=== PATIENT | female | born 1955 | race Caucasian/White ===

== ENCOUNTER → 2017-05-19 10:57 | Outpatient (CLI) | payer MEDICARE, SELFPAY ==
--- NOTE | 2017-05-19 11:01 | RAD_ITS ---
STUDY: X-RAY - LUMBAR SPINE REASON FOR EXAM: Female, 61 years old. CHRONIC LOW BACK PAIN; H/O LUMBAR DISCECTOMY, LAMINECTOMY TECHNIQUE: 2 view(s) of the lumbar spine were obtained. COMPARISON: None FINDINGS: Normal lumbar lordosis. There is scoliosis. Grade 1 anterolisthesis of L5 on S1. Stool throughout the colon. There is multilevel endplate spondylosis of the lumbar vertebrae. There is multi-level degenerative disc disease with multi-level disc space narrowing. There are atherosclerotic vascular calcifications. There are multiple metallic clips in the right upper quadrant. This is consistent for a cholecystectomy. The soft tissue structures are unremarkable. RAD/Lumbar Spine 2 or 3 Views IMPRESSION: Degenerative changes of the spine, as detailed above. Constipation Electronically Signed: Damian Bauer MD at 16:49 EDT , Service support ,
--- NOTE | 2017-05-19 11:07 | RAD_ITS ---
STUDY: X-RAY - CERVICAL SPINE REASON FOR EXAM: Female, 61 years old. CHRONIC NECK PAIN TECHNIQUE: 2 view(s) of the cervical spine were obtained. COMPARISON: None FINDINGS: Normal anterior atlantoaxial articulation. Multiple median sternotomy wires are noted consistent for cardiac surgery. There is straightening of the normal cervical lordosis. There is multi-level endplate spondylosis. There is multi-level degenerative disc disease with multilevel disc space narrowing. There is multi-level osseous foraminal stenosis. The soft tissue structures are unremarkable. RAD/Cerv Spine 2 or 3 Views IMPRESSION: There are degenerative changes as noted above. Electronically Signed: Damian Bauer MD at 16:56 EDT , Service support ,
== END ==
PROVIDERS: Family Provider Internal Medicine; PCP Internal Medicine; Visit Provider Anesthesiology Pain Medicine
DX: M54.2 Cervicalgia (principal); M54.5 Low back pain
CPT/HCPCS: 72040; 72100

== ENCOUNTER → 2017-05-26 17:00 | Outpatient (CLI) | payer MEDICARE, SELFPAY ==
--- NOTE | 2017-05-26 17:21 | MRI_ITS ---
STUDY: MRI LUMBAR SPINE WITHOUT CONTRAST REASON FOR EXAM: Female, 61 years old. BACK PAIN INTO R LEG FOR MANY YEARS TECHNIQUE: Standardized fat and water weighted pulse sequences were obtained in the sagittal and axial planes. COMPARISON: None FINDINGS: T12-L1: Endplate spondylosis. Decreased disc height and moderate circumferential disc bulge. Small midline disc herniation. Degenerative changes of the bilateral facet joints. Moderate generalized abdominal pain narrowing of the central canal and bilateral intervertebral neural foramina. Normal lumbar lordosis. There is no substantial scoliosis. Normal conus medullaris that terminates at the L1 level L1-2: Endplate spondylosis. Decreased disc height and moderate circumferential disc bulge. Degenerative changes of the bilateral facet joints. Severe narrowing of the central canal and moderate narrowing of the bilateral intervertebral neural foramina. L2-3: Endplate spondylosis. Decreased disc height and small circumferential disc bulge. Degenerative changes of the bilateral facet joints. Mild narrowing of the central canal and moderate narrowing of the bilateral intervertebral neural foramina. L3-4: Endplate spondylosis. Bilateral laminectomy. Degenerative changes of the bilateral facet joints. Severe right and moderate left intervertebral neural foramina narrowing. L4-5: Endplate spondylosis. Decreased disc height and moderate circumferential disc bulge. Degenerative changes of the bilateral facet joints. Moderate narrowing of the central canal. Moderate right and severe left bilateral intervertebral neural foramina narrowing. L5-S1: Endplate spondylosis. Decreased disc height and small circumferential disc bulge. Degenerative changes of the bilateral facet joints. 7 mm spondylolisthesis. Moderate narrowing of the central canal and bilateral intervertebral neural foramina. Normal visualized sacral ala. Normal visualized paraspinous soft tissue structures. MRI/Spine Lumbar (Routine) IMPRESSION: Multilevel degenerative changes, as described above. Electronically Signed: Dana Archer MD at 7:12 EDT Tel , Service support ,
--- NOTE | 2017-05-26 17:22 | MRI_ITS ---
STUDY: MRI CERVICAL SPINE WITHOUT CONTRAST REASON FOR EXAM: Female, 61 years old. Neck pain radiating to the upper extremities TECHNIQUE: Standardized fat and water weighted pulse sequences were obtained in the sagittal and axial planes. COMPARISON: None FINDINGS: Normal foramen magnum and brainstem-cervical cord junction. Normal craniovertebral junction. Normal anterior atlantoaxial articulation. Normal odontoid process. Decreased cervical lordosis. Normal vertebral bodies and posterior osseous elements. C2-3: Normal endplates. Normal disc height, signal and small to moderate size broad-based central/left paracentral disc protrusion. There is mild narrowing of the central canal and compression of the ventral surface of the cord on the left. The bilateral neuroforamina are normal. C3-4: Normal endplates. Normal disc height, signal and minor bulging disc with small right posterolateral/foraminal disc/osteophyte protrusion. Normal central canal . Mild left neuroforaminal stenosis and more severe narrowing on the right secondary to disc and bony hypertrophy C5-6:: Narrowed disc space and endplate spurring.. Minimal bulging disc with right posterolateral/foraminal disc/osteophyte protrusion. Mild narrowing the central canal and impingement upon the cord to the right of the midline. Severe right neuroforaminal stenosis secondary to disc and bony hypertrophy. Mild left neural foraminal encroachment secondary to bony hypertrophy C6-7:: Narrowed disc space and endplate spurring. Mild bulging disc osteophyte complex with small right posterolateral disc protrusion.. Mild narrowing of the central canal. Moderate to severe bilateral neuroforaminal stenosis secondary to disc disease and bony hypertrophy C7-T1:: Normal endplates. Normal disc height, signal and morphology. Normal central canal and intervertebral neural foramina. Normal cervical cord. Normal visualized soft tissue structures. MRI/Spine Cervical (Routine) IMPRESSION: Spondylosis and multilevel spinal stenosis secondary to disc disease and bony hypertrophy. Findings as above. Electronically Signed: Jason Brumfield MD at 20:07 EDT , Service support ,
== END ==
PROVIDERS: Family Provider Internal Medicine; PCP Internal Medicine; Visit Provider Anesthesiology Pain Medicine
DX: M54.2 Cervicalgia (principal); M54.9 Dorsalgia, unspecified; M79.606 Pain in leg, unspecified; M79.603 Pain in arm, unspecified
CPT/HCPCS: 72141; 72148

== ENCOUNTER → 2017-06-16 17:18 | Outpatient (CLI) | payer MEDICARE, SELFPAY ==
--- NOTE | 2017-06-16 17:24 | RAD_ITS ---
STUDY: X-RAY - THORACIC SPINE REASON FOR EXAM: Female, 61 years old. Fall, pain in back TECHNIQUE: 2 view(s) of the thoracic spine were obtained. COMPARISON: None. FINDINGS: Normal kyphosis of the thoracic spine. There is a mild scoliosis. Degenerative changes of the thoracic vertebrae with spurring at the endplates. Slightly narrowed lower thoracic disc space heights. The soft tissue structures are unremarkable. Sternotomy wires and clips over the mediastinum. Surgical clips in the right upper quadrant. RAD/Thoracic Spine 2 Views IMPRESSION: Degenerative changes and slight scoliosis of the thoracic spine. Electronically Signed: Edin Kaufman DO at 22:01 EDT Tel [phone], Service support ,
== END ==
LOC: RAD 17:19
PROVIDERS: Family Provider Internal Medicine; PCP Internal Medicine; Visit Provider Anesthesiology Pain Medicine
DX: M54.6 Pain in thoracic spine (principal); W19.XXXA Unspecified fall, initial encounter
CPT/HCPCS: 72070

== ENCOUNTER → 2017-09-28 17:54 | Outpatient (CLI) | payer MEDICARE, SELFPAY ==
[2017-09-28 18:54] LABS: Amphetamine Urine VISTA NEGATIVE (<1000 ng/mL); Barbiturate Urine VISTA NEGATIVE (< 200 ng/mL); Benzodiazepine Urine VISTA NEGATIVE (< 200 ng/mL); Cocaine Urine VISTA NEGATIVE (< 300 ng/mL); Ecstacy Urine VISTA POSITIVE (< 500 ng/mL); Methadone Urine VISTA NEGATIVE (< 300 ng/mL); PCP Urine VISTA NEGATIVE (< 25 ng/mL); THC Urine VISTA NEGATIVE (< 50 ng/mL); Vista UDS pH Range 6
== END ==
PROVIDERS: Family Provider Internal Medicine; PCP Internal Medicine; Visit Provider Anesthesiology Pain Medicine
DX: F11.20 Opioid dependence, uncomplicated (principal)
CPT/HCPCS: 80307

== ENCOUNTER 2018-07-20 10:00 | Outpatient (RCR) | payer MEDICARE, OTHER, SELFPAY ==
--- NOTE | 2018-06-09 16:47 | HP.OTEVAL_ITS ---
Patient's Visit Information SUYAPA BURT is a 62 year old F, referred to Occupational Therapy by Chidi Currie MD, with a diagnosis of other disturbances of skin sensation. Date of Evaluation: 06/09/18 Occupational Therapist: Radha Krishna - Subjective Subjective: Pt seen for initial occupational therapy for other disturbances of skin sensation. Pt states last fall started having decreased dexterity and numbness of R MF, IF and thumb. Pt states x-ray in 02/22 of R hand nothing showed up. Pt right hand dominent. Numbness/tingling tips of fingers to R elbow. Back sx 2006 at [facility], open heart sx 96. Lives w/ spouse, 1 story apartment, indep w/ BADLs/IADLs, still drives. Hobbies crochett, adult coloring books. Pt states has a lot of difficulty grasping objects for self care tasks, getting her earrings in and cutting with a knife for self feeding tasks. - Pain R hand 4 Pain Intensity Range: 4, 5 - Objective Objective/Observation: pain with movement R hand, light tremors R hand, decreased coordination R hand - ROM Wrist: R 45/91 L L 47/89 MP: R MF 90 IF 91, L MF 89 IF 94 - Strength Demurrage Worker: R 33#, L 55# Lateral Pinch: R 8#, L 8# Tripod Pinch: R 3#, L 9# - Edema Other: Slight edema noted R hand - Sensation Sensation Comments: Monofilament: R thumb, PF 3.61, MF, RF, 5th digit 3.84 - Nine Hole Peg Right: 50.7 seconds Left: 32.7 seconds - Quick DASH-Disab of Arm,Shoulder& Hand Quick DASH Score: 38.6350 - Goals Goal:: Pt will progress w/ R subgrade tester strength by 20# to assist w/ grooming tasks independently by d/c from OT services. Pt will progress w/ tripod pinch by 5# to assist with functional living tasks. Goal:: Pt will demo no pain greater than 1/10 with R hand with movement by d/c from OT services. Goal:: Pt will progress w/ score of R hand nine hole peg test by 20 sec to demo increased coordination and dexterty skills by d/c from OT services. Goal:: Pt will be educated on joint protection/energy conservation techniques wtih good understanding and demo 100%x Goal:: Pt will be able to complete all self feeding tasks using R hand with good coordination skills and no spillage of food or difficulty cutting by d/c from OT services. Goal:: Pt will be educated on R UE HEP with good understanding and demo 100%x - Rehabilitation General Assessment: Pt demo decreased strength of R hand, increased pain of R hand, decreased coordination and manipulation/dexterity skills of R hand for functional living tasks all indicating a need for skilled OT interventions to increase R hand strength, increase R hand coordination skills, decrease pain of R hand, educate on HEP to increase pts indep w/ functional living skills and quality of life 1-2x/wk - 4-6wks Rehabilitation Potential: Good - Anticipated Interventions Anticipated Interventions: Strengthening, Massage, Modalities, Orthoses, Joint P rotection/Energy Conservation, Fine Motor Coord/Hussein, ADL Training, Education re assistive Equipment, Education re Diagnosis, Education re Self Massage Techniques, Home Program - Visit Plan Frequency: 1-2x /Week Duration: 4-6 Weeks General Plan: increase R hand strength, decrease pain R hand, increase coordi antion skills R hand for BADLs/IADLs, educate on jont protection, HEP. TEXT: Thank you for the opportunity to evaluate your patient. For Medicare and Medicare HMO plans, please review the plan of care and approve it. It will need to be FAXED BACK to us at [phone] for Medicare purposes. Please let me know if there are questions or concerns regarding this plan of care. Physician Signature: Date:
--- NOTE | 2018-07-20 13:14 | HP.OTDCSUM ---
HP - OT D/C Summary It has been my pleasure to treat SUYAPA BURT under orders from Chidi Currie MD, for the diagnosis of other disturbances of skin sensation for a total of 10 visit(s). Please see the following information for a summary of their discharge status. - Overall Improvement % Improvement: 45 - Objective Objective/Function: US= 10 min R dorsal side hand MF and IF to increase circulation and promote healing, decrease pain, 1.2, 3.3 MHZ, 50%. - Goals Patient Goals: Regain Strength, Decrease Pain, Decrease Swelling/Stiffness, Improve Fine Motor Skills, Use Hand/Wrist/Arm Normally Again, Decrease Tingling/Numbness, Be More Independent in ADLS, Decrease Sensitivity, Resume Former Household Responsibilities (Cooking,Cleaning,Yard, etc.), Resume Hobbies Goal:: Pt will progress w/ R sports medicine trainer strength by 20# to assist w/ grooming tasks independently by d/c from OT services. Pt will progress w/ tripod pinch by 5# to assist with functional living tasks. Goal:: Pt will demo no pain greater than 1/10 with R hand with movement by d/c from OT services. Goal:: Pt will progress w/ score of R hand nine hole peg test by 20 sec to demo increased coordination and dexterty skills by d/c from OT services. Goal:: Pt will be educated on joint protection/energy conservation techniques wtih good understanding and demo 100%x Goal:: Pt will be able to complete all self feeding tasks using R hand with good coordination skills and no spillage of food or difficulty cutting by d/c from OT services. Goal:: Pt will be educated on R UE HEP with good understanding and demo 100%x - Plan Plan: d/c OT services this date. - D/C Information Discharge Comments: Pt has demonstrated decreased pain R UE during occupational therapy with use of modalities. Pt has been educated on R UE HEP, nerve glides, tendon glides and theraputty HEP with good understanding and demo. Pt has progressed with AROM R wrist from evaluation to 60/. Pt has progressed with R hand sports medicine trainer strength from 33# to 45#. Tripod pinch strength has remained 3#. Pt has been educated on fine motor coordination activities to complete at home and is able to grasp objects better with her R hand however continues to occassionally drop things with her R hand. 9 hole peg test was 50.7 seconds at evaluation and 1 min 9 seconds at d/c. Monofilament at d/c R hand was 3.61 MF, RF, PF and 3.84 thumb, IF. Pt states no spillage of food or difficulty with cutting food at this time. Pt does continue to demo pain with right hand however not as severe as when initially started OT and continues to demo decreased coordination and grasping skills of R hand. Rec pt to return back to dr and d/c OT services at this time. If there are questions or concerns regarding this patient's occupational therapy, please fell free to call me at [phone]. Thank you for the referral of this patient. Sincerely, Radha Krishna
== END 2018-07-20 19:00 | disposition home or self-care (01) ==
LOC: OT 10:00
PROVIDERS: Family Provider Internal Medicine; PCP Internal Medicine; Referring Provider Specialist; Visit Provider Specialist
DX: R20.8 Other disturbances of skin sensation (principal)
CPT/HCPCS: 97035; 97140; 97166; 97530

== ENCOUNTER 2019-07-02 04:17 | Emergency (ER) | payer MEDICARE, OTHER, SELFPAY ==
[2019-07-02 04:19] VITALS: BP 163/102; PULSE 75; RESP 16; TEMP 36.4; O2SAT 98; BMI 42.4
--- NOTE | 2019-07-02 04:32 | CT_ITS ---
STUDY: CT BRAIN WITHOUT CONTRAST REASON FOR EXAM: Female, 63 years old. FELL WHILE GOING TO BATHROOM AND HIT HEAD, PT TAKES DAILY ASPIRIN RADIATION DOSAGE (If Supplied By Facility): CTDIvol = ( 44.99 ) mGy, DLP = ( 812.98 ) mGycm TECHNIQUE: Transaxial CT imaging of the brain was performed without administration of intravenous contrast material. Individualized dose optimization techniques were used for this CT. COMPARISON: No relevant priors. FINDINGS: Normal soft tissue structures. Normal calvarium. As seen on series 2, axial image 25, there is a 6 mm extra-axial calcification, contiguous with the inner table of the left frontal calvarium, and probably representing a densely calcified meningioma is no mass effect on the underlying brain. There is mild cerebral atrophy with widening of the extra-axial spaces and ventricular dilatation. There are areas of decreased attenuation within the white matter tracts of the supratentorial brain, consistent with microvascular disease changes. Normal basal ganglia and thalami. Normal brainstem. Normal cerebellum. There is atherosclerotic calcification of the cavernous carotid arteries. There is no intracranial hemorrhage. There are no findings of an acute ischemic infarction. Normal visualized paranasal sinuses. CT/Brain/Head without Contrast IMPRESSION: Chronic involutional changes of the brain. No demonstrated acute intracranial process. 6 mm densely calcified meningioma underlying the left parietal calvarium, with no mass effect on the brain. Suggest follow-up exam in one year to assess stability. Electronically Signed: Oz Dos Santos MD at 5:00 EDT , Service support ,
--- NOTE | 2019-07-02 04:33 | ED.VIS.GEN ---
History of Present Illness Chief Complaint: Fall Informant: Patient Narrative: Stated she went to the bathroom to use the restroom. She fell asleep on the toilet and fell forward striking her head on the wall. She came in for further evaluation. Happened just prior to arrival. Current severity is mild to moderate. She has some soreness to the right side of her neck. No shortness to the backside of her neck. Tetanus is up-to-date. Worsened by nothing. Relieved by nothing. Describes some pain where she struck her face - Past Medical History (1) Diarrhea Status: Acute (2) Elevated LFTs Status: Acute (3) Hypothyroid Status: Acute (4) CAD (coronary artery disease) Status: Chronic (5) COPD (chronic obstructive pulmonary disease) Status: Chronic (6) Hiatal hernia Status: Chronic (7) Hx of CABG Status: Chronic (8) Ulcer Status: Chronic Past Medical History - Allergies and Home Meds Allergies/Adverse Reactions: Allergies Sulfa (Sulfonamide Antibiotics) Allergy (Verified 07/02/19 04:25) Rash pregabalin [From Lyrica] Adverse Reaction (Verified 07/02/19 04:25) Swelling Primary Care Physician: Meg Quan MD [Primary Care Provider] - Prior records reviewed: Yes Past Medical History: - - See problem list Surgical History: hysterectomy, - - d&c,egd and colonoscopy in the past Lives: With Family Smoking Status: Never smoker Alcohol: None Drugs: None - Family History Maternal Family History: Reports: Heart Disease, - - colon cancer Paternal Family History: Reports: Heart Disease, - - colon cancer Review of Systems General: Denies: Chills, Fever, Sweats Eyes: Denies: Visual changes - bilaterally, Diplopia ENT: Denies: Rhinorrhea, Sore throat Cardiovascular: Denies: Chest pain, Palpitations Respiratory: Denies: Dyspnea, Cough, Dyspnea on exertion Gastrointestinal: Denies: Abdominal pain, Nausea, Vomiting, Diarrhea, Melena, Hematochezia Genitourinary: Denies: Dysuria, Hematuria, Frequency Musculoskeletal: Reports: Neck pain - See HPI. Denies: Back pain, Extremity Pain Skin: Reports: Wounds. Denies: Rash Neurological: Reports: Headache. Denies: Weakness, Numbness Physical Exam Vital Signs/Narrative: Vital Signs Temp Pulse Resp BP Pulse Ox 07/02/19 04:19 97.6 F L 75 16 163/102 H 98 General: Well nourished, Well developed, No Acute Distress Head: Normocephalic, Trauma - Small contusion to the right forehead. 2 small lacerations just lateral to the right eye on the temporal portion of the forehead. Negative for: Atraumatic Eyes: Perrl, EOMI ENT: Moist mucous membranes, No rhinorrhea Neck: Supple, - - Noted to the right paracervical muscles where they insert on the posterior portion of the cranium. No midline posterior neck pain. Normal range of motion. Negative for: Nontender Cardiovascular: Regular rate, Regular rhythm, No murmurs Respiratory: No distress, CTA bilaterally, Chest nontender Abdomen: Soft, Nontender, Nondistended, Normal bowel sounds Back: Nontender, Normal Inspection Extremities: Nontender, No edema Skin: - - See above. Negative for: Normal color, No rash Neurological: Alert, Oriented x3, Cranial nerves II-XII grossly intact, Normal Strength, Normal Sensation Psychological: Normal affect, Normal Mood Diagnostic/Tx/Re-eval - Medical Decision Making CT head obtained. Tetanus is up-to-date. CT head shows nothing acute. Calcified suspected meningioma 6 mm noted. Patient made aware of this and will follow-up for an outpatient CAT scan as an outpatient for monitoring. I suspect this is a benign meningioma. She received sutures in her lacerations. One received 3 sutures and the other received 4 sutures. It came together nicely with good hemostasis. There is no foreign body seen in a bloodless field. The wounds were washed with 500 cc of saline. There were cleansed with chlorhexidine. Anesthetized with lidocaine with epinephrine a total of 3 cc. Patient will follow-up as an outpatient. She did not want thing for pain. I feel she has slight whiplash in her neck. I do not feel she needs an x-ray of her neck. I do not feel she needs a CAT scan of her neck. She is sore on the lateral aspects ED Disposition - Plan for ED Patient: Disposition: LEFT WITHOUT BEING SEEN Diagnosis: Forehead laceration, Head contusion, Neck strain, Meningioma Instructions: ED Laceration All Closures, ED Sprain Strain Neck Referrals: Meg Quan MD [Primary Care Provider] - Additional Instructions: Sutures removed in 7 to 10 days Please follow-up with family doctor about the CAT scan results of possible meningioma
[2019-07-02] MEDS: BACITRACIN 15 GM Tube 1 APPLIC TOPICAL (05:05)
[2019-07-02 05:44] VITALS: BP 155/98; PULSE 76; RESP 16; O2SAT 97
== END 2019-07-02 05:44 | disposition left against medical advice (07) ==
LOC: ED 05:24
PROVIDERS: Emergency Provider Emergency Medicine; PCP Internal Medicine
DX: S01.81XA Laceration without foreign body of other part of head, initial encounter (principal); S16.1XXA Strain of muscle, fascia and tendon at neck level, initial encounter; D32.9 Benign neoplasm of meninges, unspecified; W18.12XA Fall from or off toilet with subsequent striking against object, initial encounter; Z53.21 Procedure and treatment not carried out due to patient leaving prior to being seen by health care provider; Z95.1 Presence of aortocoronary bypass graft
CPT/HCPCS: 12011; 70450; 99283

== ENCOUNTER 2020-05-14 04:32 | Outpatient (RCR) | payer MEDICARE, OTHER, SELFPAY ==
[2020-05-14] MEDS: COVID-19 VACC, MRNA(PFIZER)/PF 30 MCG/0.3 ML SYRINGE IM (10:28)
[2020-06-04] MEDS: COVID-19 VACC, MRNA(PFIZER)/PF 30 MCG/0.3 ML SYRINGE IM (10:19)
== END 2020-08-13 23:59 ==
LOC: IMMUN 04:32
PROVIDERS: PCP Internal Medicine; Visit Provider Family Medicine
DX: Z23 Encounter for immunization (principal)
CPT/HCPCS: 0001A; 0002A; 91300

== ENCOUNTER 2022-07-27 18:37 | Emergency (ER) | payer MEDICARE, SELFPAY ==
[2022-07-27 18:39] VITALS: BP 161/75; PULSE 75; RESP 18; TEMP 36.8; O2SAT 95; BMI 37.4
--- NOTE | 2022-07-27 19:21 | CT_ITS ---
INDICATION: hallucinations, hx meningioma EXAMINATION: CT BRAIN - CT Head or Brain W/O Contrast Injection TECHNIQUE: Multiple axial images were obtained of the head without intravenous contrast. A radiation dose optimization technique was used for this scan. IV Contrast dosage and agent: None. COMPARISON: July 02, 2019 CT head. FINDINGS: BRAIN PARENCHYMA: No intra- or extra-axial hemorrhage. No suspicious intracranial mass or mass effect. Ford/white matter differentiation is maintained and there is no blurring of the basal ganglia. There is no hyperdense vessel. There is decreased density in the periventricular white matter bilaterally symmetric most commonly representing chronic small vessel ischemic changes. 10 x 27 mm fluid density anterolateral periphery of the left posterior fossa likely representing an arachnoid cyst. Appearance is unchanged. The prior exam. Unchanged extra-axial calcification left parietal region likely meningioma. CSF SPACES: Prominent bilaterally suggesting decreased parenchymal volume. No hydrocephalus. Basal cisterns are patent. CALVARIUM, SKULL BASE, PARANASAL SINUSES AND MASTOID AIR CELLS: Intact calvarium and skull base. No fracture or osseous lesion. Paranasal sinuses are clear. Mastoid air cells and middle ears are clear. Degenerative changes right greater than left bilateral temporomandibular joints. ORBITS: Both globes, extraocular muscles, optic nerves and retrobulbar fat appear unremarkable. ASPECTS Score for Acute Strokes: 10 CT/Brain/Head without Contrast IMPRESSION: No acute intracranial pathology. Chronic small vessel ischemic changes. Likely subcentimeter, calcified meningioma left parietal lobe, unchanged compared to prior comparison exam. 10 x 27 mm fluid density left anterolateral posterior fossa likely representing a arachnoid cyst, unchanged in appearance compared to prior exam. Electronically Signed: Daniele Chacon DO at 20:26 EDT ,
--- NOTE | 2022-07-27 19:23 | EX.ED.DYSGE1 ---
HPI History of Present Illness Chief Complaint: Bite Informant: patient and spouse/S.O. Narrative Narrative: For about the past week, patient states she has had spider bites all over her body mostly on her forearms and her face, they are in her head, her hair, behind her eyes, she states she is seeing spiders all over, they are on her, they are biting her and given her white bumps, and she cannot get them out of her hair even with shampooing. She states that the skin areas are bothersome but not necessarily itchy, painful, nor anything else. The significant other is here. They live in an apartment complex. He has seen none of the spiders, in the apartment nor on her. She does not have any psychiatric illness and she states I am not crazy. [facility] Medical History (Updated 07/27/22 @ 21:[address] Ronni Felix MD) CAD (coronary artery disease) COPD (chronic obstructive pulmonary disease) Hiatal hernia Hypothyroid Ulcer Home Medications amitriptyline 25 mg tablet 50 mg PO QHS 07/24/15 [History Last Taken 11/18/15] bupropion HCl 100 mg tablet 100 mg PO DAILY 07/24/15 [History Last Taken 11/19/15] dicyclomine 10 mg capsule 10 mg PO ACHS PRN Irritable Bowel Syndrome 07/24/15 [History Last Taken 11/18/15] isosorbide mononitrate 30 mg tablet,extended release 24 hr 30 mg PO DAILY 07/24/15 [History Last Taken 11/19/15] levothyroxine 137 mcg tablet 137 mcg PO DAILY 07/24/15 [History Last Taken 11/19/15] lisinopril 5 mg tablet 10 mg PO DAILY 07/24/15 [History Last Taken 11/19/15] nitroglycerin 0.4 mg sublingual tablet 0.4 mg sublingual Q5M PRN Chest Pain 07/24/15 [History Last Taken Unknown] tramadol 50 mg tablet 50 mg PO BID pain 07/24/15 [History Last Taken 11/19/15] aspirin 81 mg tablet,delayed release 81 mg PO DAILY@0800 07/28/15 [History Last Taken 11/19/15] furosemide 20 mg tablet 20 mg PO DAILY PRN PRN Swelling 07/28/15 [History Last Taken Unknown] gabapentin 600 mg tablet 1,200 mg PO TID 07/28/15 [History Last Taken 11/19/15] multivitamin with folic acid 400 mcg tablet (Thera) 1 tab PO DAILY 07/28/15 [History Last Taken 11/19/15] omega-3 fatty acids 300 mg capsule (Fish Oil) 2,400 mg PO DAILY 07/28/15 [History Last Taken 11/19/15] metoprolol tartrate 100 mg tablet 37.5 mg PO BID 07/29/15 [History Last Taken 11/19/15] docusate sodium 100 mg capsule (DOK) 100 mg PO DAILY 03/23/16 [History Last Taken Unknown] fluticasone propionate 50 mcg/actuation nasal spray,suspension (Flonase Allergy Relief) 2 spray intranasal DAILY 07/27/22 [History Last Taken Unknown] rosuvastatin 40 mg tablet 40 mg PO DAILY 07/27/22 [History Last Taken Unknown] tizanidine 2 mg tablet 2 mg PO BID PRN muscle spasms 07/27/22 [History Last Taken Unknown] topiramate 50 mg tablet 50 mg PO QHS 07/27/22 [History Last Taken Unknown] vitamins A,C,Z-qkvb-tbarkb 2,148 mcg-113 mg-45 mg-17.4 mg tablet (PreserVision AREDS) 2 tab PO BID 07/27/22 [History Last Taken Unknown] Allergy/AdvReac Type Severity Reaction Status Date / Time Sulfa (Sulfonamide Allergy Rash Verified 07/02/19 04:25 Antibiotics) pregabalin [From Lyrica] AdvReac Swelling Verified 07/02/19 04:25 Surgical History (Updated 07/27/22 @ 19:[address] Ronni Felix MD) Hx of CABG Social History Smoking Status: Never smoker ROS ROS ED Constitutional Constitutional ED: Denies chills or fever(s) Eyes Eyes: Denies change in vision or diplopia ENT ENT ED: Denies rhinorrhea or sore throat Cardiovascular Cardiovascular: Denies chest pain or palpitations Respiratory/Chest Respiratory/Chest: Denies cough or dyspnea Gastrointestinal Gastrointestinal: Denies abdominal pain, diarrhea, nausea or vomiting Genitourinary Genitourinary ED: Reports urinary frequency; Denies dysuria or hematuria Musculoskeletal Musculoskeletal: Denies back pain or neck pain Integumentary Denies abscess or rash Neurologic Neurologic: Denies headache(s), paresthesias or weakness Psychiatric Psychiatric: Denies anxiety or suicidal thoughts EXAM Physical Exam Const Vital Signs: 07/27/22 18:39 07/27/22 19:22 07/27/22 21:02 Temperature 98.3 F Temperature Source Temporal Pulse Rate 75 65 Respiratory Rate 18 18 Respiratory Effort Normal Respiratory Pattern Normal Blood Pressure 161/75 H 147/71 H Blood Pressure Mean 103 96 Pulse Ox 95 95 Oxygen Delivery Method Room Air Room Air Positive well nourished and well developed General Appearance ED: well developed and NAD HEENT Reports moist mucous membranes normocephalic and atraumatic Eyes PERRL and EOMs intact bilaterally Neck full ROM and supple Resp normal respiratory effort and clear to auscultation bilaterally Cardio regular rate, regular rhythm and no murmurs GI non-tender and non-distended Auscultation: normoactive bowel sounds Palpation: soft Back/Spine no CVA tenderness General Back: other FROM Extremity normal to inspection General Extremety ED: Negative for edema, pulses abnormal or tenderness General Extremity: Negative for edema or pulses abnormal Neuro oriented x3, CN's II-XII intact bilaterally and no sensory deficits noted Sensorium / Orientation: awake and alert Motor Exam: strength 5/5 throughout Skin no rashes or lesions noted and no wounds Skin Narrative: no bumps, lesions, rashes, including scalp/hair which is normal; no spiders, bugs, mites, nits. MDM MDM MDM Narrative Medical decision making narrative: As I advised the patient I do not think she is psychotic, but my concern given the normal exam, she points to areas on her forearm where there are white bumps and spiders but I see nothing, and I looked through her hair and I see nothing, is that she is hallucinating and there may be an organic reason. When I discussed the possibility of other symptoms she has urinary frequency and states it is due to the lisinopril, whereas I looked at her medication list and corrected her is probably due to the furosemide not the lisinopril, she also states she has a history of a meningioma. It was diagnosed by CT 3 years ago incidentally after trauma, she followed up and had an MRI, she never followed up again. I obtained all of this testing basically everything is nonacute. I reviewed the CT images and the report and I agree with it. Urinalysis shows no infection, chest x-ray 2 view showed no sign of acute pneumonia. I reviewed the radiologist interpretation of this, who also agrees it does not appear to be consistent with consolidation, she does not have any acute respiratory symptoms. I discussed with Dr. Hodges, I am concerned about this patient and wondered have close a patient follow-up. She does not need to be pink slipped and does not do anything dangerous right now, my concern is that it could be psychiatric, I see no evidence of an acute organic cause at this time. She does have a meningioma but it is unchanged on the CT. She had an MRI about 3 years ago she said never followed up again after that. Lab Data Attestation: I reviewed the patient's lab results. Labs: Laboratory Results - last 24 hr 07/27/22 07/27/22 07/27/22 19:30 19:30 19:55 WBC 9.8 RBC 4.35 Hgb 13.4 Hct 38.6 MCV 88.7 MCH 30.8 MCHC 34.7 RDW Std Deviation 39.3 RDW Coeff of Abdullahi 12.1 Plt Count 227 MPV 10.4 Immature Gran % (Auto) 0.200 Neut % (Auto) 48.3 Lymph % (Auto) 37.9 [place] % (Auto) 7.9 Eos % (Auto) 5.3 H Baso % (Auto) 0.4 Absolute Neuts (auto) 4.7 Absolute Lymphs (auto) 3.71 Nucleated RBC % 0 Sodium 142 Potassium 3.7 Chloride 109 H Carbon Dioxide 24.0 Anion Gap 9 BUN 13 Creatinine 1.07 H Estim Creat Clear Calc 37.44 Est GFR (MDRD) Af Amer 65 Est GFR (MDRD) Non-Af 54 L BUN/Creatinine Ratio 12.1 Glucose 96 Calcium 9.2 Urine Color Yellow Urine Clarity Sl. Cloudy Urine pH 6.0 Ur Specific [place] 1.015 Urine Protein 30 H Urine Glucose (UA) Normal Urine Ketones Negative Urine Occult Blood 50 H Urine Nitrite Negative Urine Bilirubin Negative Urine Urobilinogen Normal Ur Leukocyte Esterase Negative Urine RBC 0 SEEN Urine WBC 0-5 SEEN Ur Squamous Epith Cells 0 SEEN Urine Bacteria 0 SEEN Urine Mucus 0 SEEN Radiography Diagnostic Testing: Clinical Impression(s) from Imaging Studies Brain CT 07/27/22 19:21 IMPRESSION: No acute intracranial pathology. Chronic small vessel ischemic changes. Likely subcentimeter, calcified meningioma left parietal lobe, unchanged compared to prior comparison exam. 10 x 27 mm fluid density left anterolateral posterior fossa likely representing a arachnoid cyst, unchanged in appearance compared to prior exam. Electronically Signed: Daniele Chacon DO at 20:26 EDT , Chest X-Ray 07/27/22 20:05 IMPRESSION: 1. Significant asymmetric elevation right hemidiaphragm with associated linear opacities and volume loss likely representing atelectasis. Infiltrate not completely excluded. 2. Postsurgical changes from thoracotomy. Electronically Signed: Daniele Chacon DO at 20:32 EDT , Discharge Plan Triage Chief Complaint: Bite ED Provider: Ronni Felix Dx/Rx/DC Orders Clinical Impression: Delusion of infestation, Hallucinations, visual Instructions: ED Psychosis Prescriptions: No Action tramadol 50 MG tablet 50 mg PO BID Label Comments: pain levothyroxine 137 MCG tablet 137 mcg PO DAILY Label Comments: thyroid isosorbide mononitrate 30 MG tablet 30 mg PO DAILY Label Comments: bp bupropion HCl 100 MG tablet 100 mg PO DAILY Label Comments: depression amitriptyline 25 MG tablet 50 mg PO QHS nitroglycerin 0.4 MG tablet 0.4 mg sublingual Q5M PRN (Reason: Chest Pain) Label Comments: chest pain lisinopril 5 MG tablet 10 mg PO DAILY Label Comments: bp dicyclomine 10 MG capsule 10 mg PO ACHS PRN (Reason: Irritable Bowel Syndrome) Label Comments: abd cramping gabapentin 600 MG tablet 1,200 mg PO TID Label Comments: nerve pain, 1-2 TABLETS IN THE AFTERNOON aspirin 81 MG tablet 81 mg PO DAILY@0800 Label Comments: heart health furosemide 20 MG tablet 20 mg PO DAILY PRN PRN (Reason: Swelling) Label Comments: swelling Fish Oil 300 MG capsule 2,400 mg PO DAILY Label Comments: supplement multivitamin with folic acid [Thera] 1 TABLET tablet 1 tab PO DAILY Label Comments: vitamin metoprolol tartrate 100 MG tablet 37.5 mg PO BID Label Comments: heartrate docusate sodium [DOK] 100 MG capsule 100 mg PO DAILY fluticasone propionate [Flonase Allergy Relief] 50 mcg/actuation [place],Suspension 2 spray INTRANASAL DAILY Rx Instructions: administer into each nostril Primary Care Provider: Meg Quan Referrals: Meg Quan MD [Primary Care Provider] - As soon as possible Disposition Disposition: Home, Self Care
[2022-07-27 19:49] LABS: Absolute Lymphocyte Count 3.71 X10^3/uL (0.83-4.51); Absolute Neutrophil Count 4.7 X10^3/uL (2.0-7.7); Basophil# 0.04 X10^3/uL; Basophil% 0.4 % (0-1); Eosinophil# 0.52 X10^3/uL; Eosinophils% 5.3 % (0-5); Hematocrit 38.6 % (37-47); Hemoglobin 13.4 g/dL (12.0-15.0); Lymphocyte # 3.71 X10^3/ul (0.83-4.51); Lymphocyte % 37.9 % (19-41); Mean Corp Hgb Conc 34.7 g/dL (32-36); Mean Corpuscular Hgb 30.8 pg (27.0-32.0); Mean Corpuscular Volume 88.7 fL (81-99); Mean Platelet Vol. 10.4 fl (6.2-12.0); Monocyte# 0.77 X10^3/uL; Monocyte% 7.9 % (0-10); NRBC Flagged by Analyzer 0 % (0-5); Neutrophil # 4.74 X10^3/uL (2.7-7.7); Neutrophil % 48.3 % (47-70); Platelet Count 227 K/mm3 (150-450); RBC Distribution Width CV 12.1 % (11.6-14.6); RBC Distribution Width SD 39.3 fl (35.1-43.9); Red Blood Count 4.35 M/mm3 (4.2-5.4); White Blood Count 9.8 K/mm3 (4.4-11.0)
[2022-07-27 20:01] LABS: Bacteria 0 SEEN /hpf (None Seen); Color, Urine Yellow (Yellow); Glucose, Dipstick Normal (Normal); Ketone-Dipstick Negative (Negative); Leukocyte Esterase-Dipstick Negative /ul (Negative); Mucous, Urine 0 SEEN /hpf (<or=2+); Nitrite-Dipstick Negative (Negative); Occult Blood-Urine 50 /ul (Negative); Protein-Dipstick 30 mg/dl (Negative); Red Blood Cells-Urine 0 SEEN /hpf (0-5); Specific Gravity, Urine 1.015 (1.002-1.030); Squamous Epithelial Cells - UA 0 SEEN /hpf (5-10); Urine Bilirubin Dipstick Negative (Negative); Urine Clarity Sl. Cloudy (Clear); Urine Urobilinogen Normal (Normal)
--- NOTE | 2022-07-27 20:05 | RAD_ITS ---
INDICATION: hallucinations EXAMINATION/TECHNIQUE: X-RAY - XR Chest 2 Views COMPARISON: November 19, 2015 chest x-ray. FINDINGS: LINES/DEVICES: None. Intact sternotomy wires are present. Clips along the left mediastinal border. LUNGS: Significant asymmetric elevation right hemidiaphragm. Associated medial, right lower lobe crowding of interstitial markings likely representing atelectasis. Thin linear opacity right middle lobe likely representing atelectasis. Lungs are otherwise clear without nodule, pleural effusion or pneumothorax. MEDIASTINUM AND CARDIOVASCULAR STRUCTURES: Normal size and contour of the cardiomediastinal silhouette. No evidence of pulmonary vascular congestion. BONES AND SOFT TISSUES: No fracture or focal osseous lesion. Mild S-shaped thoracolumbar spine curvature with multilevel degenerative endplate changes. Proximal lumbar spine vertebral body height loss suggested. Consider correlation with spine x-rays. Surgical clips right upper quadrant. RAD/Chest PA and Lateral IMPRESSION: 1. Significant asymmetric elevation right hemidiaphragm with associated linear opacities and volume loss likely representing atelectasis. Infiltrate not completely excluded. 2. Postsurgical changes from thoracotomy. Electronically Signed: Daniele Chacon DO at 20:32 EDT ,
[2022-07-27 20:07] LABS: Anion Gap 9 (5-15); BUN 13 mg/dL (7-18); BUN/Creat Ratio 12.1 RATIO (10-20); Calcium,Total 9.2 mg/dL (8.5-10.1); Chloride 109 mmol/L (98-107); Creatinine, Serum 1.07 mg/dL (0.55-1.02); EST Glomerular Filtration Rate 54 mL/min (>60); Est Glom Filt Rate - Afr Amer 65 mL/min (>60); Estimated Creatinine Clearance 37.44 ml/min; Glucose 96 mg/dL (74-106); Potassium 3.7 mmol/L (3.5-5.1); Sodium Level 142 mmol/L (136-145)
[2022-07-27 20:15] LABS: White Blood Cells 0-5 SEEN /hpf (0-5)
[2022-07-27 21:02] VITALS: BP 147/71; PULSE 65; RESP 18; O2SAT 95
== END 2022-07-27 21:44 | disposition home or self-care (01) ==
PROVIDERS: Emergency Provider Emergency Medicine; PCP Internal Medicine; Visit Provider Emergency Medicine
DX: R44.1 Visual hallucinations (principal); J44.9 Chronic obstructive pulmonary disease, unspecified; D32.9 Benign neoplasm of meninges, unspecified; I25.10 Atherosclerotic heart disease of native coronary artery without angina pectoris; R35.0 Frequency of micturition
CPT/HCPCS: 70450; 71046; 80048; 81001; 85025; 99283; A4216

== ENCOUNTER 2024-03-27 11:42 | Inpatient (IN) | payer MEDICARE, SELFPAY ==
[2024-03-27] VITALS (11 sets, daily range): BP systolic 132–184; BP diastolic 53–74; PULSE 77–103; RESP 13–20; TEMP 36.2–36.8; O2SAT 95–100; BMI 36.8
--- NOTE | 2024-03-27 11:45 | RAD_ITS ---
STUDY: X-RAY CHEST REASON FOR EXAM: Female, 68 years old. Chest pain TECHNIQUE: Single AP portable view of the chest. COMPARISON: Comparison is made with prior study July 27, 2022. FINDINGS: EKG electrodes are seen. Elevation of the right hemidiaphragm with persistent increased linear markings at the right lung base suggestive of scarring. Stable increased markings at the left lung base. There is no demonstrated pleural abnormality. Sternal cerclage wires and vascular clips are present from a prior sternotomy and coronary artery bypass graft procedure (CABG). Normal mediastinum and celso. Normal visualized pulmonary arteries. Normal visualized aortic arch and descending thoracic aorta. There are degenerative changes of the visualized thoracic spine. Normal visualized ribs, clavicles, and shoulders. There is no demonstrated abnormality of the visualized soft tissue structures of the upper abdomen. RAD/Chest 1 View (Portable) IMPRESSION: Stable elevation of the right hemidiaphragm with mild increased markings at the lung bases suggestive scarring. Electronically Signed: Ozzie Brizuela MD at 12:35 EST ,
--- NOTE | 2024-03-27 11:45 | EKG12_ITS ---
Test Reason : CP ADMIT Blood Pressure : */* mmHG Vent. Rate : 94 BPM Atrial Rate : 94 BPM P-R Int : 212 ms QRS Dur : 94 ms QT Int : 368 ms P-R-T Axes : 53 -31 97 degrees QTcB Int : 460 ms Sinus rhythm with 1st degree A-V block Left axis deviation Moderate voltage criteria for LVH, may be normal variant ( R in aVL , Rafi product ) Abnormal QRS-T angle, consider primary T wave abnormality Abnormal ECG When compared with ECG of 27-Mar-2024 12:03, MANUAL COMPARISON REQUIRED DATA IS UNCONFIRMED Confirmed by JACINDA HWANG, RAÚL ([id number]), book or script editor NICKOLAS MCGUIRE ([id number]) on 04/03/2024 2:14:51 PM Referred By: GERONIMO Confirmed By: RAÚL MONACO MD
[2024-03-27 12:25] LABS: Absolute Lymphocyte Count 2.17 X10^3/uL (0.83-4.51); Basophil# 0.05 X10^3/uL; Basophil% 0.4 % (0-1); Eosinophil# 0.52 X10^3/uL; Eosinophils% 4.2 % (0-5); Hematocrit 39.8 % (37-47); Hemoglobin 13.3 g/dL (12.0-15.0); Lymphocyte # 2.17 X10^3/ul (0.83-4.51); Lymphocyte % 17.3 % (19-41); Mean Corp Hgb Conc 33.4 g/dL (32-36); Mean Corpuscular Hgb 30.3 pg (27.0-32.0); Mean Corpuscular Volume 90.7 fL (81-99); Mean Platelet Vol. 10.6 fl (6.2-12.0); Monocyte# 0.76 X10^3/uL; Monocyte% 6.1 % (0-10); NRBC Flagged by Analyzer 0 % (0-5); Neutrophil # 8.97 X10^3/uL (2.7-7.7); Neutrophil % 71.5 % (47-70); Platelet Count 236 K/mm3 (150-450); RBC Distribution Width CV 12.9 % (11.6-14.6); RBC Distribution Width SD 42.6 fl (35.1-43.9); Red Blood Count 4.39 M/mm3 (4.2-5.4); White Blood Count 12.5 K/mm3 (4.4-11.0)
[2024-03-27 13:27] LABS: Anion Gap 7 (5-15); BUN 20 mg/dL (7-18); BUN/Creat Ratio 15.6 RATIO (10-20); Calcium,Total 9.4 mg/dL (8.5-10.1); Chloride 107 mmol/L (98-107); Creatinine, Serum 1.28 mg/dL (0.55-1.02); EST Glomerular Filtration Rate 44 mL/min (>60); Est Glom Filt Rate - Afr Amer 53 mL/min (>60); Estimated Creatinine Clearance 41.36 ml/min; Glucose 152 mg/dL (74-106); Potassium 3.7 mmol/L (3.5-5.1); Sodium Level 138 mmol/L (136-145); Troponin-I HS (w/2H Reflex) 15 pg/mL (3.0-54.0)
[2024-03-27 14:19] LABS: Reflex Troponin-HS? (from REC) Y
[2024-03-27 14:43] LABS: Troponin-I HS 28 pg/mL (3.0-54.0)
[2024-03-27] MEDS: Aspirin 81 MG TAB.CHEW 243 MG PO (16:28)
--- NOTE | 2024-03-27 16:41 | ED.VIS.CHEST ---
HPI History of Present Illness Chief Complaint: Chest Pain Narrative Narrative: Patient is a 68-year-old female past medical history of CAD, CABG, COPD, hypothyroidism, GERD, anxiety, depression who presents to the emergency department chief complaint of chest pain and abnormal stress test. Patient states that recently she had been having chest pain with exertion and her doctor ordered her a stress test in the outpatient setting. States that she is having this obtained today. During the stress test she noted that she developed chest pain rating to her left jaw they stopped the stress test and immediately sent her here for further evaluation management. Patient states that by time arrival she was feeling much better but did take a significant amount of time before her chest pain resolved. [facility] Medical History Anxiety Depression Hypothyroidism GERD (gastroesophageal reflux disease) Asthma Non-smoker Myocardial infarct Ulcer Hiatal hernia Hypothyroid COPD (chronic obstructive pulmonary disease) CAD (coronary artery disease) Home Medications ?Medication ?Instructions ?Recorded ?Last Taken ?Type amitriptyline 25 mg tablet 50 mg PO QHS 07/24/15 11/18/15 History bupropion HCl 100 mg tablet 100 mg PO DAILY 07/24/15 11/19/15 History isosorbide mononitrate 30 mg 30 mg PO DAILY 07/24/15 11/19/15 History tablet,extended release 24 hr levothyroxine 137 mcg tablet 137 mcg PO DAILY 07/24/15 11/19/15 History lisinopril 5 mg tablet 10 mg PO DAILY 07/24/15 11/19/15 History nitroglycerin 0.4 mg sublingual 0.4 mg sublingual Q5M PRN Chest 07/24/15 Unknown History tablet Pain tramadol 50 mg tablet 50 mg PO BID pain 07/24/15 11/19/15 History aspirin 81 mg tablet,delayed 81 mg PO DAILY@0800 07/28/15 11/19/15 History release gabapentin 600 mg tablet 1,200 mg PO TID 07/28/15 11/19/15 History multivitamin with folic acid 400 1 tab PO DAILY 07/28/15 11/19/15 History mcg tablet (Thera) omega-3 fatty acids 300 mg capsule 2,400 mg PO DAILY 07/28/15 11/19/15 History (Fish Oil) metoprolol tartrate 100 mg tablet 37.5 mg PO BID 07/29/15 11/19/15 History docusate sodium 100 mg capsule 100 mg PO DAILY 03/23/16 Unknown History (DOK) fluticasone propionate 50 2 spray intranasal DAILY 07/27/22 Unknown History mcg/actuation nasal spray,suspension (Flonase Allergy Relief) rosuvastatin 40 mg tablet 40 mg PO DAILY 07/27/22 Unknown History tizanidine 2 mg tablet 2 mg PO BID PRN muscle spasms 07/27/22 Unknown History topiramate 50 mg tablet 50 mg PO QHS 07/27/22 Unknown History vitamins A,C,Z-tmyg-qiutgq 2,148 2 tab PO BID 07/27/22 Unknown History mcg-113 mg-45 mg-17.4 mg tablet (PreserVision AREDS) Allergy/AdvReac Type Severity Reaction Status Date / Time Sulfa (Sulfonamide Allergy Rash Verified 03/27/24 11:43 Antibiotics) pregabalin (From Lyrica) AdvReac Swelling Verified 03/27/24 11:43 Surgical History History of appendectomy History of cholecystectomy History of coronary artery stent placement Hx of CABG Hx of CABG Social History Smoking Status: Never smoker ROS ROS ED ROS Narrative Constitutional: Denies any fevers, chills, headaches, lightness, dizziness Cardiovascular: Complains of chest pain as noted above Respiratory: Denies coughing wheezing shortness of breath Abdomen: Denies abdominal pain nausea vomit diarrhea : Denies any urinary symptoms Neurological: Denies numbness, wheeze, tingling Musculoskeletal: Denies back pain Skin: Denies any rashes or lesions EXAM Physical Exam Narrative Exam Narrative: General: Patient lying in bed rest comfortably did not appear to be in acute distress Head: Atraumatic, normocephalic Eyes: PERRL bilaterally, EOMI bilateral, no conjunctival injection noted Neck: Soft, supple, trachea midline Cardiovascular: Regular rate and rhythm no murmurs gallops rubs noted Respiratory: Clear to auscultation bilaterally no rales rhonchi or wheezes noted Abdomen: Soft, nondistended, nontender to palpation, bowel sounds present x 4 Extremities: +5/5 strength noted in the bilateral upper and lower extremities, radial pulses +2/4 in the bilateral per extremities Neurological: Patient following commands knew that she was at [facility] year is 2024 Skin: Warm, dry, intact Const Vital Signs: 03/27/24 11:43 03/27/24 12:12 03/27/24 12:50 Temperature 98.2 F Temperature Source Oral Pulse Rate 103 H 90 Respiratory Rate 16 13 Blood Pressure 184/64 H 149/60 H Blood Pressure Mean 104 89 Pulse Ox 100 96 Oxygen Delivery Method Room Air Room Air Room Air 03/27/24 13:26 03/27/24 14:00 03/27/24 15:00 Temperature Temperature Source Pulse Rate 88 85 87 Respiratory Rate 17 16 15 Blood Pressure 146/62 H 143/66 H 144/69 H Blood Pressure Mean 90 91 94 Pulse Ox 98 100 96 Oxygen Delivery Method 03/27/24 16:00 03/27/24 16:29 Temperature 97.5 F L Temperature Source Pulse Rate 93 98 Respiratory Rate 15 20 H Blood Pressure 150/66 H 150/66 H Blood Pressure Mean 94 94 Pulse Ox 97 95 Oxygen Delivery Method Room Air MDM MDM MDM Narrative Medical decision making narrative: Patient is a 68-year-old female who presented to the emergency department with a chief complaint of abnormal stress test chest pain. On the differential diagnose includes but not limited to ACS, pneumonia, pneumothorax. Once workup is obtained reviewed she will be reevaluated. Patient CBC reviewed and showed a white blood cell count 12,000, hemoglobin 13.3, platelet count was normal at 336. Patient's sodium normal 130, potassium normal at 3.7, creatinine was 1.28 which is slightly elevated, troponin was noted be 15 with a delta troponin of 28. Patient's EKG reviewed and independently reviewed by myself which showed sinus rhythm with a rate of 95 bpm. I did review the EKGs from the stress test that were sent here and did appear that she had significantly worsening depression in the inferior leads. Patient's chest x-ray reviewed by myself and by radiology which showed stable elevation of the right hemidiaphragm with mild increased markings at the lung bases suggestive of scarring otherwise no acute cardiopulmonary processes. I called and discussed case with flight information expediter Dr. Raman who states that he would recommend admission and he will see her in consult. Called and discussed case with hospitalist Dr. Ho who accept patient for admission. Patient already took 81 mg of aspirin and she will be given 244 mg of aspirin here in the emergency department. Patient notified she is agreeable to plan all question concerns answered. Lab Data Labs: Laboratory Results - last 24 hr 03/27/24 03/27/24 12:12 14:09 WBC 12.5 H RBC 4.39 Hgb 13.3 Hct 39.8 MCV 90.7 MCH 30.3 MCHC 33.4 RDW Std Deviation 42.6 RDW Coeff of Abdullahi 12.9 Plt Count 236 MPV 10.6 Immature Gran % (Auto) 0.500 Neut % (Auto) 71.5 H Lymph % (Auto) 17.3 L [place] % (Auto) 6.1 Eos % (Auto) 4.2 Baso % (Auto) 0.4 Absolute Neuts (auto) 9.0 H Absolute Lymphs (auto) 2.17 Nucleated RBC % 0 Sodium 138 Potassium 3.7 Chloride 107 Carbon Dioxide 24.0 Anion Gap 7 BUN 20 H Creatinine 1.28 H Estim Creat Clear Calc 41.36 Est GFR (MDRD) Af Amer 53 L Est GFR (MDRD) Non-Af 44 L BUN/Creatinine Ratio 15.6 Glucose 152 H Calcium 9.4 Troponin I High Sens 15 28 Radiography Diagnostic Testing: Clinical Impression(s) from Imaging Studies Chest X-Ray 03/27/24 11:45 IMPRESSION: Stable elevation of the right hemidiaphragm with mild increased markings at the lung bases suggestive scarring. Electronically Signed: Ozzie Brizuela MD at 12:35 EST , Discharge Plan Triage Chief Complaint: Chest Pain ED Provider: Saul Goode Dx/Rx/DC Orders Clinical Impression: Chest pain, Abnormal stress test Primary Care Provider: Meg Quan Disposition Disposition: Acute Care [facility]
--- NOTE | 2024-03-27 16:49 | HP.PCM.HOS_ITS ---
HPI - General General Date of Admission: 03/27/24 Date of Service: 03/27/24 Chief Complaint: Neck and jaw pain HPI Narrative SUYAPA BURT, is a 68-year-old female with history of hypothyroidism, hypertension, coronary artery disease with CABG and PCI several years ago presented [facility] ED 03/27/2024 due to an abnormal stress test. She had been having some exertional chest pain recently and today was getting an outpatient stress test during which she developed substernal chest pain that radiated to her jaw and there were questionable ST depressions. She sent to the ED. In the ED her initial troponin 15 and subsequent was 28. Workup otherwise fairly benign. Cardiology contacted and given her abnormal stress test being sent to the ED is advised that patient be admitted. Hospitalist contacted for admission. Patient evaluated at bedside, she reports since summer she has been having neck and jaw pain on exertion that improves with rest prompting an outpatient stress test to be obtained. During the stress test she had the neck pain that radiated to her jaw and has been also having some shortness of breath on exertion. Pain is almost resolved, of note she has not taken any of her home medications today because she went for the stress test. [facility] Medical History (Updated 03/27/24 @ 17:[address] Nery Ho MD) Anxiety Asthma CAD (coronary artery disease) COPD (chronic obstructive pulmonary disease) Depression GERD (gastroesophageal reflux disease) Hiatal hernia Hypothyroid Hypothyroidism Myocardial infarct Non-smoker Ulcer Home Medications ?Medication ?Instructions ?Recorded ?Last Taken ?Type amitriptyline 25 mg tablet 50 mg PO QHS 07/24/15 11/18/15 History bupropion HCl 100 mg tablet 100 mg PO DAILY 07/24/15 11/19/15 History isosorbide mononitrate 30 mg 30 mg PO DAILY 07/24/15 11/19/15 History tablet,extended release 24 hr levothyroxine 137 mcg tablet 137 mcg PO DAILY 07/24/15 11/19/15 History lisinopril 5 mg tablet 10 mg PO DAILY 07/24/15 11/19/15 History nitroglycerin 0.4 mg sublingual 0.4 mg sublingual Q5M PRN Chest 07/24/15 Unknown History tablet Pain tramadol 50 mg tablet 50 mg PO BID pain 07/24/15 11/19/15 History aspirin 81 mg tablet,delayed 81 mg PO DAILY@0800 05/22/16 09/13/16 History release gabapentin 600 mg tablet 1,200 mg PO TID 07/28/15 11/19/15 History multivitamin with folic acid 400 1 tab PO DAILY 07/28/15 11/19/15 History mcg tablet (Thera) omega-3 fatty acids 300 mg capsule 2,400 mg PO DAILY 07/28/15 11/19/15 History (Fish Oil) metoprolol tartrate 100 mg tablet 37.5 mg PO BID 07/29/15 11/19/15 History docusate sodium 100 mg capsule 100 mg PO DAILY 03/23/16 Unknown History (DOK) fluticasone propionate 50 2 spray intranasal DAILY 07/27/22 Unknown History mcg/actuation nasal spray,suspension (Flonase Allergy Relief) rosuvastatin 40 mg tablet 40 mg PO DAILY 07/27/22 Unknown History tizanidine 2 mg tablet 2 mg PO BID PRN muscle spasms 07/27/22 Unknown History topiramate 50 mg tablet 50 mg PO QHS 07/27/22 Unknown History vitamins A,C,F-tgvd-qrsrfv 2,148 2 tab PO BID 07/27/22 Unknown History mcg-113 mg-45 mg-17.4 mg tablet (PreserVision AREDS) Allergy/AdvReac Type Severity Reaction Status Date / Time Sulfa (Sulfonamide Allergy Rash Verified 03/27/24 11:43 Antibiotics) pregabalin (From Lyrica) AdvReac Swelling Verified 03/27/24 11:43 Surgical History History of appendectomy History of cholecystectomy History of coronary artery stent placement Hx of CABG Hx of CABG Social History Smoking Status: Never smoker ROS ROS Narrative General: Denies fever/chills HENT: Denies headache, denies stuffy nose, denies sore throat EYES: Denies changes in vision Resp: Denies cough, has had some chronic shortness of breath on exertion Cardiac: Denies overt chest pain however has neck pain that radiates to her jaw GI: Denies abdominal pain, denies changes in bowel, denies nausea/vomiting : Denies changes in urination Extremity: Denies swelling MSK: Denies weakness Neuro: Denies any numbness/tingling Heme: Denies any bleeding or bruising Skin: Denies rashes Psychiatric: No complaints voiced Vital Signs Vital Signs Vital Signs: 03/27/24 11:43 03/27/24 12:12 03/27/24 12:50 Temperature 98.2 F Temperature Source Oral Pulse Rate 103 H 90 Respiratory Rate 16 13 Blood Pressure 184/64 H 149/60 H Blood Pressure Mean 104 89 Pulse Ox 100 96 Oxygen Delivery Method Room Air Room Air Room Air 03/27/24 13:26 03/27/24 14:00 03/27/24 15:00 Temperature Temperature Source Pulse Rate 88 85 87 Respiratory Rate 17 16 15 Blood Pressure 146/62 H 143/66 H 144/69 H Blood Pressure Mean 90 91 94 Pulse Ox 98 100 96 Oxygen Delivery Method 03/27/24 16:00 03/27/24 16:29 Temperature 97.5 F L Temperature Source Pulse Rate 93 98 Respiratory Rate 15 20 H Blood Pressure 150/66 H 150/66 H Blood Pressure Mean 94 94 Pulse Ox 97 95 Oxygen Delivery Method Room Air Weight Weight: 88.451 kg Body Mass Index (BMI) 36.8 Physical Exam Narrative General: Alert, oriented, no apparent distress HEENT: Atraumatic, normocephalic Eyes: Anicteric, normal conjunctiva, extraocular movements grossly intact Neck: Supple Respiratory: Clear to auscultation bilaterally, normal respiratory effort Cardiovascular: Regular rate and rhythm GI: Soft, nontender, nondistended Extremities: No edema Musculoskeletal: Moving all extremities Neuro: No overt focal neurological deficits Skin: No rashes appreciated Psych: Cooperative Results Lab / Micro Data 03/27/24 12:12 03/27/24 12:12 Labs: Laboratory Results - last 24 hr 03/27/24 12:12: WBC 12.5 H, RBC 4.39, Hgb 13.3, Hct 39.8, MCV 90.7, MCH 30.3, MCHC 33.4, RDW Std Deviation 42.6, RDW Coeff of Abdullahi 12.9, Plt Count 236, MPV 10.6, Immature Gran % (Auto) 0.500, Neut % (Auto) 71.5 H, Lymph % (Auto) 17.3 L, [place] % (Auto) 6.1, Eos % (Auto) 4.2, Baso % (Auto) 0.4, Absolute Neuts (auto) 9.0 H, Absolute Lymphs (auto) 2.17, Nucleated RBC % 0, Sodium 138, Potassium 3.7, Chloride 107, Carbon Dioxide 24.0, Anion Gap 7, BUN 20 H, Creatinine 1.28 H , Estim Creat Clear Calc 41.36, Est GFR (MDRD) Af Amer 53 L, Est GFR (MDRD) Non- Af 44 L, BUN/Creatinine Ratio 15.6, Glucose 152 H, Calcium 9.4, Troponin I High Sens 15 03/27/24 14:09: Troponin I High Sens 28 Imaging Radiology Impression Chest X-Ray 03/27/24 11:45 IMPRESSION: Stable elevation of the right hemidiaphragm with mild increased markings at the lung bases suggestive scarring. Electronically Signed: Ozzie Brizuela MD at 12:35 EST Reading Location ID and State: [facility] / [place] , Service support , Assessment & Plan Assessment/Plan (1) CAD (coronary artery disease): PLAN: Plan # Concerning for anginal equivalent -Has been having neck pain radiating up to her jaw with exertion that was reproduced on stress test -Trop initial 15 with repeat 28 -Admit to telemetry -Cardiology consult -Echo ordered -Aspirin -Statin -Lipid panel in AM # History of coronary artery disease -Has history of CABG and PCI -Continue aspirin and statin -Continue BB -Cardiology consulted #Hypothyroidism -Continue Synthroid #Hypertension -Continue patient's home medications # Suspect CKD stage III b -No values since 2022 and before that 2016 but did appear to have CKD at the time, today is 1.28, suspect this may be baseline -Avoid nephrotoxic agents -Daily BMPs #DVT ppx: SCDs Nery Ho MD Charges/Coding Visit Charges Inpatient E&M: 93037 Init Hosp L2
--- NOTE | 2024-03-27 17:32 | EKG12_ITS ---
Test Reason : SOB Blood Pressure : */* mmHG Vent. Rate : 95 BPM Atrial Rate : 95 BPM P-R Int : 184 ms QRS Dur : 94 ms QT Int : 366 ms P-R-T Axes : 48 -35 90 degrees QTcB Int : 459 ms Normal sinus rhythm Left axis deviation Left ventricular hypertrophy with repolarization abnormality ( R in aVL , Rafi product ) Abnormal ECG Confirmed by JACINDA HWANG, RAÚL ([id number]), medical editor RANDY DE LA CRUZ ([id number]) on 04/04/2024 6:04:18 AM Referred By: Confirmed By: RAÚL MONACO MD
--- NOTE | 2024-03-27 17:32 | ECHOCS_ITS ---
Reason For Study: Chest Pain Procedure This was a 2D Doppler, Color Flow transthoracic echocardiogram. Contrast injection was performed. Exam performed portable in patient room. Left Ventricle Normal LV size. The estimated ejection fraction is 65 %. No evidence for diastolic dysfunction. No regional wall motion abnormalities noted. Right Ventricle Normal RV size. Normal systolic function. Atria Normal left atrium. Normal right atrium. No doppler evidence for ASD. Mitral Valve There is no mitral valve stenosis. Trivial mitral valve insufficiency. Tricuspid Valve There is no tricuspid stenosis. Trivial tricuspid valve insufficiency. Unable to estimate RV systolic pressure due to insufficient tricuspid regurgitant envelope. Aortic Valve Trisinus/trileaflet aortic valve. There is no aortic stenosis. No aortic valve insufficiency. Pulmonic Valve There is no pulmonic valvular stenosis. Trivial pulmonic valve insufficiency. Great Vessels Normal aortic root. Pericardium/Pleural No pericardial effusion. Medication Diluted definity 1ml given slow IV push to enhance endocardial definition. MMode/2D Measurements & Calculations LVIDd: 4.3 cm IVSd: 0.82 cm Ao root diam: 2.7 cm LVIDs: 2.6 cm LVPWd: 0.81 cm RVDd: 3.6 cm FS: 38.7 % LAV(MOD-bp): 31.6 ml LVAd ap4: 24.5 cm2 SV(MOD-sp4): 48.9 ml LAV(MOD-bp) Indexed: 16.9 ml/m2 LVLd ap4: 7.0 cm SI(MOD-sp4): 26.2 ml/m2 LAV(MOD-sp2): 33.7 ml EDV(MOD-sp4): 71.0 ml LAV(MOD-sp4): 28.9 ml EDV(sp4-el): 72.5 ml LVAs ap4: 12.1 cm2 LVLs ap4: 5.7 cm ESV(MOD-sp4): 22.0 ml ESV(sp4-el): 22.0 ml EF(MOD-sp4): 69.0 % EF(sp4-el): 69.7 % SV(sp4-el): 50.5 ml LA A4 area: 12.8 cm2 LA dimension(2D): 4.1 cm RA A4 area: 8.9 cm2 TAPSE: 1.9 cm Time Measurements MV dec time: 0.26 sec Doppler Measurements & Calculations MV E max jason: 70.4 cm/sec Lat Peak E' Jason: 11.5 cm/sec Med Peak E' Jason: 7.4 cm/sec MV A max jason: 81.9 cm/sec E/E' lat: 6.1 E/E' med: 9.5 MV E/A: 0.86 MV dec slope: 272.4 cm/sec2 Ao V2 max: 131.2 cm/sec LV V1 max: 104.6 cm/sec Ao max P.9 mmHg LV V1 max P.4 mmHg Ao V2 mean: 85.4 cm/sec LV V1 mean P.4 mmHg Ao mean P.5 mmHg LV V1 mean: 72.3 cm/sec Ao V2 VTI: 30.2 cm LV V1 VTI: 24.3 cm AV (velocity ratio): 0.80 PA V2 max: 96.0 cm/sec TR max jason: 272.5 cm/sec TR max P.7 mmHg ECHO/Echo Complete W/ Contrast Interpretation Summary The estimated ejection fraction is 65 %. No evidence for diastolic dysfunction. Trivial mitral valve insufficiency. Ordering Physician: Nery Ho Referring Physician: Meg Quan Performed By: Diann Yates, RDCS, RVT
[2024-03-27] MEDS: traMADol 50 MG Tablet PO (18:32)
[2024-03-27] MEDS: Acetaminophen 325 MG Tablet 650 MG PO (18:32)
[2024-03-27] MEDS: Lisinopril 10 MG Tablet PO (18:51)
[2024-03-27] MEDS: Amitriptyline 25 MG Tablet 50 MG PO (21:09)
[2024-03-27] MEDS: Gabapentin 600 MG Tablet 1200 MG PO (21:09)
[2024-03-27] MEDS: Metoprolol Tartrate 25 MG Tablet 37.5 MG PO (21:09)
[2024-03-28] VITALS (16 sets, daily range): BP systolic 100–138; BP diastolic 52–72; PULSE 57–97; RESP 16–18; TEMP 36.3–36.9; O2SAT 94–100
--- NOTE | 2024-03-28 05:55 | EKG12_ITS ---
Test Reason : PRE CI Blood Pressure : */* mmHG Vent. Rate : 69 BPM Atrial Rate : 69 BPM P-R Int : 212 ms QRS Dur : 94 ms QT Int : 430 ms P-R-T Axes : 54 -22 65 degrees QTcB Int : 460 ms Sinus rhythm with 1st degree A-V block Minimal voltage criteria for LVH, may be normal variant ( Rafi product ) Borderline ECG When compared with ECG of 27-Mar-2024 17:29, MANUAL COMPARISON REQUIRED DATA IS UNCONFIRMED Confirmed by JACINDA HWANG, RAÚL ([id number]), web content editor NICKOLAS MCGUIRE ([id number]) on 04/03/2024 2:13:23 PM Referred By: Confirmed By: RAÚL MONACO MD
[2024-03-28] MEDS: Isosorbide Mononitrate 30 MG Tablet PO (06:10)
[2024-03-28] MEDS: Lisinopril 10 MG Tablet PO (06:10)
[2024-03-28] MEDS: Aspirin E.C. 81 MG Tablet PO (06:10)
[2024-03-28] MEDS: Metoprolol Tartrate 25 MG Tablet 37.5 MG PO ×2 (06:10→22:19)
[2024-03-28] MEDS: Levothyroxine 137 MCG Tablet PO (06:14)
[2024-03-28] MEDS: Gabapentin 600 MG Tablet 1200 MG PO ×3 (06:14→22:19)
[2024-03-28 06:40] LABS: Absolute Lymphocyte Count 3.68 X10^3/uL (0.83-4.51); Absolute Neutrophil Count 4.7 X10^3/uL (2.0-7.7); Basophil# 0.04 X10^3/uL; Basophil% 0.4 % (0-1); Eosinophil# 0.58 X10^3/uL; Eosinophils% 5.8 % (0-5); Hematocrit 37.4 % (37-47); Hemoglobin 12.4 g/dL (12.0-15.0); Lymphocyte # 3.68 X10^3/ul (0.83-4.51); Lymphocyte % 36.6 % (19-41); Mean Corp Hgb Conc 33.2 g/dL (32-36); Mean Corpuscular Hgb 30.2 pg (27.0-32.0); Mean Platelet Vol. 11.3 fl (6.2-12.0); Monocyte# 1.01 X10^3/uL; NRBC Flagged by Analyzer 0 % (0-5); Neutrophil % 46.8 % (47-70); Platelet Count 232 K/mm3 (150-450); RBC Distribution Width CV 13.1 % (11.6-14.6); RBC Distribution Width SD 43.3 fl (35.1-43.9); Red Blood Count 4.11 M/mm3 (4.2-5.4); White Blood Count 10.1 K/mm3 (4.4-11.0)
[2024-03-28 07:04] LABS: Anion Gap 6 (5-15); BUN 17 mg/dL (7-18); BUN/Creat Ratio 16.5 RATIO (10-20); Calcium,Total 8.9 mg/dL (8.5-10.1); Chloride 111 mmol/L (98-107); Cholesterol 112 mg/dL (200); Creatinine, Serum 1.03 mg/dL (0.55-1.02); EST Glomerular Filtration Rate 56 mL/min (>60); Est Glom Filt Rate - Afr Amer 68 mL/min (>60); Glucose 95 mg/dL (74-106); High Density Lipoprotein 46 mg/dL; Sodium Level 138 mmol/L (136-145); Triglycerides 117 mg/dL; Very Low Density Lipoprotein 23 mg/dL (5-40)
[2024-03-28] MEDS: buPROPion 100 MG Tablet PO (10:15)
[2024-03-28] MEDS: Atorvastatin Calcium 80 MG Tablet PO (10:15)
--- NOTE | 2024-03-28 11:54 | NURSING ---
Gave report to Meera CADE in refuse laborer
--- NOTE | 2024-03-28 12:11 | CON.PCM.CA_ITS ---
Assessment & Plan Assessment/Plan (1) Abnormal stress test: PLAN: Will proceed with coronary angiography. Risks and benefits discussed with the patient. Patient prefers this approach as well. (2) Chest pain: QUALIFIERS: Chest pain type: chest pain due to myocardial ischemia Ischemic chest pain type: unstable angina pectoris Qualified Code(s): I20.0 - Unstable angina (3) CAD (coronary artery disease): QUALIFIERS: Coronary Disease-Associated Artery/Lesion type: [place] artery [place] vs. transplanted heart: [place] heart Associated angina: with unstable angina Qualified Code(s): I25.110 - Atherosclerotic heart disease of [place] coronary artery with unstable angina pectoris HPI Consult Data Date of Consult: 03/28/24 HPI Narrative Reason for Consultation: Neck and jaw pain on exertion, abnormal stress test HPI Narrative: SUYAPA BURT, is a 68 F who presents with neck and jaw pain that started when she was having a Lexiscan stress test at an outside facility. Patient has history of single-vessel CABG in 1995 (MAURICIO to LAD). In 2006 she had a stent but does not know in which vessel. She had the CABG at [facility]. The graft details is from the patient. Patient states that she has been having neck and jaw discomfort on exertion when she walks fast. Patient's EKG from the Lexiscan stress test was reviewed and shows about [address] depressions in the lateral leads and to some extent in the inferior leads. Patient's troponin was negative x 2. She had a 2D echo today which revealed preserved EF and no regional wall motion abnormalities. Review of systems: All systems reviewed. All else is negative except that in HPI [facility] Medical History (Updated 03/28/24 @ 12:[address] Ashish Raman MD) Anxiety Depression Hypothyroidism GERD (gastroesophageal reflux disease) Asthma Non-smoker Myocardial infarct Ulcer Hiatal hernia Hypothyroid COPD (chronic obstructive pulmonary disease) CAD (coronary artery disease) Home Medications ?Medication ?Instructions ?Recorded ?Last Taken ?Type amitriptyline 25 mg tablet 50 mg PO QHS 07/24/15 11/18/15 History bupropion HCl 100 mg tablet 100 mg PO DAILY 07/24/15 11/19/15 History isosorbide mononitrate 30 mg 30 mg PO DAILY 07/24/15 11/19/15 History tablet,extended release 24 hr levothyroxine 137 mcg tablet 137 mcg PO DAILY 07/24/15 11/19/15 History lisinopril 5 mg tablet 10 mg PO DAILY 07/24/15 11/19/15 History nitroglycerin 0.4 mg sublingual 0.4 mg sublingual Q5M PRN Chest 07/24/15 Unknown History tablet Pain tramadol 50 mg tablet 50 mg PO BID pain 07/24/15 11/19/15 History aspirin 81 mg tablet,delayed 81 mg PO DAILY@0800 07/28/15 11/19/15 History release gabapentin 600 mg tablet 1,200 mg PO TID 07/28/15 11/19/15 History multivitamin with folic acid 400 1 tab PO DAILY 07/28/15 11/19/15 History mcg tablet (Thera) omega-3 fatty acids 300 mg capsule 2,400 mg PO DAILY 07/28/15 11/19/15 History (Fish Oil) metoprolol tartrate 100 mg tablet 37.5 mg PO BID 07/29/15 11/19/15 History docusate sodium 100 mg capsule 100 mg PO DAILY 03/23/16 Unknown History (DOK) fluticasone propionate 50 2 spray intranasal DAILY 07/27/22 Unknown History mcg/actuation nasal spray,suspension (Flonase Allergy Relief) rosuvastatin 40 mg tablet 40 mg PO DAILY 07/27/22 Unknown History tizanidine 2 mg tablet 2 mg PO BID PRN muscle spasms 07/27/22 Unknown History topiramate 50 mg tablet 50 mg PO QHS 07/27/22 Unknown History vitamins A,C,O-qhfl-kvvgzh 2,148 2 tab PO BID 07/27/22 Unknown History mcg-113 mg-45 mg-17.4 mg tablet (PreserVision AREDS) Allergy/AdvReac Type Severity Reaction Status Date / Time Sulfa (Sulfonamide Allergy Rash Verified 03/27/24 11:43 Antibiotics) pregabalin (From Lyrica) AdvReac Swelling Verified 03/27/24 11:43 Surgical History History of appendectomy History of cholecystectomy History of coronary artery stent placement Hx of CABG Hx of CABG Social History Smoking Status: Never smoker Physical Exam Const alert and oriented x3 HEENT normocephalic Resp normal respiratory effort Cardio regular rate Extremity no pedal edema Risk Stratification Risk Stratification Applicable: No Charges/Coding Visit Charges Inpatient E&M: 82010 Init Hosp L2 Objective Data Vital Signs: Vital Signs Temp Pulse Resp BP Pulse Ox O2 Del Method 98.2 F 63 18 100/52 L 94 Room Air 03/28/24 11:00 03/28/24 11:00 03/28/24 11:00 03/28/24 11:00 03/28/24 11:00 03/28/24 11:00 Oxygen Delivery Method Room Air Weight: 195 lb Body Mass Index (BMI) 36.8 Intake & Output: Intake and Output for Last 24 Hours 03/26/24 03/27/24 03/28/24 23:59 23:59 23:59 Intake Total 390 / 390 Output Total 0 / 0 Balance - 390 / 390 Lab / Micro Data 03/28/24 05:07 03/28/24 05:07 Labs: Laboratory Results - last 24 hr 03/27/24 12:12: WBC 12.5 H, RBC 4.39, Hgb 13.3, Hct 39.8, MCV 90.7, MCH 30.3, MCHC 33.4, RDW Std Deviation 42.6, RDW Coeff of Abdullahi 12.9, Plt Count 236, MPV 10.6, Immature Gran % (Auto) 0.500, Neut % (Auto) 71.5 H, Lymph % (Auto) 17.3 L, [place] % (Auto) 6.1, Eos % (Auto) 4.2, Baso % (Auto) 0.4, Absolute Neuts (auto) 9.0 H, Absolute Lymphs (auto) 2.17, Nucleated RBC % 0, Sodium 138, Potassium 3.7, Chloride 107, Carbon Dioxide 24.0, Anion Gap 7, BUN 20 H, Creatinine 1.28 H , Estim Creat Clear Calc 41.36, Est GFR (MDRD) Af Amer 53 L, Est GFR (MDRD) Non- Af 44 L, BUN/Creatinine Ratio 15.6, Glucose 152 H, Calcium 9.4, Troponin I High Sens 15 03/27/24 14:09: Troponin I High Sens 28 03/28/24 05:07: WBC 10.1, RBC 4.11 L, Hgb 12.4, Hct 37.4, MCV 91.0, MCH 30.2, MCHC 33.2, RDW Std Deviation 43.3, RDW Coeff of Abdullahi 13.1, Plt Count 232, MPV 11.3, Immature Gran % (Auto) 0.400, Neut % (Auto) 46.8 L, Lymph % (Auto) 36.6, [place] % (Auto) 10.0, Eos % (Auto) 5.8 H, Baso % (Auto) 0.4, Absolute Neuts (auto) 4.7, Absolute Lymphs (auto) 3.68, Nucleated RBC % 0, Sodium 138, Potassium 4.0, Chloride 111 H, Carbon Dioxide 21.0, Anion Gap 6, BUN 17, Creatinine 1.03 H, Estim Creat Clear Calc 51.40, Est GFR (MDRD) Af Amer 68, Est GFR (MDRD) Non-Af 56 L, BUN/Creatinine Ratio 16.5, Glucose 95, Calcium 8.9, Triglycerides 117, Cholesterol 112, LDL Cholesterol 43, VLDL Cholesterol 23, HDL Cholesterol 46, TSH 2.920 Cardiology Labs/Tests 03/27/24 12:12: WBC 12.5 H, RBC 4.39, Hgb 13.3, Hct 39.8, MCV 90.7, MCH 30.3, MCHC 33.4, Plt Count 236, MPV 10.6, Immature Gran % (Auto) 0.500, Neut % (Auto) 71.5 H, Lymph % (Auto) 17.3 L, [place] % (Auto) 6.1, Eos % (Auto) 4.2, Baso % (Auto) 0.4, Absolute Neuts (auto) 9.0 H, Nucleated RBC % 0, Sodium 138, Potassium 3.7, Chloride 107, Carbon Dioxide 24.0, Anion Gap 7, BUN 20 H, C reatinine 1.28 H, Est GFR (MDRD) Af Amer 53 L, Est GFR (MDRD) Non-Af 44 L, BUN/Creatinine Ratio 15.6, Glucose 152 H, Calcium 9.4 03/28/24 05:07: WBC 10.1, RBC 4.11 L, Hgb 12.4, Hct 37.4, MCV 91.0, MCH 30.2, MCHC 33.2, Plt Count 232, MPV 11.3, Immature Gran % (Auto) 0.400, Neut % (Auto) 46.8 L, Lymph % (Auto) 36.6, [place] % (Auto) 10.0, Eos % (Auto) 5.8 H, Baso % (Auto) 0.4, Absolute Neuts (auto) 4.7, Nucleated RBC % 0, Sodium 138, Potassium 4.0, Chloride 111 H, Carbon Dioxide 21.0, Anion Gap 6, BUN 17, Creatinine 1.03 H , Est GFR (MDRD) Af Amer 68, Est GFR (MDRD) Non-Af 56 L, BUN/Creatinine Ratio 16.5, Glucose 95, Calcium 8.9, Triglycerides 117, Cholesterol 112, LDL Cholesterol 43, VLDL Cholesterol 23, HDL Cholesterol 46 Rhythm: EKG: ECHO: Stress Test: Cardiac Cath: PCI: CT Surgery: Holter monitor: EPS: PPM: CXR: Chest CT Scan: Radiography Diagnostic Testing: Radiology Impression Chest X-Ray 03/27/24 11:45 IMPRESSION: Stable elevation of the right hemidiaphragm with mild increased markings at the lung bases suggestive scarring. Electronically Signed: Ozzie Brizuela MD at 12:35 EST , Echocardiogram 03/27/24 17:32 Interpretation Summary The estimated ejection fraction is 65 %. No evidence for diastolic dysfunction. Trivial mitral valve insufficiency. Ordering Physician: Nery Ho Referring Physician: Meg Quan Performed By: Diann Yates, RDCS, RVT
--- NOTE | 2024-03-28 13:53 | PN_ITS ---
Subjective Subjective Patient seen and examined. She had no complaints. She was admitted on account of abnormal stress test. She denies any chest pain, palpitations or dizziness, nausea vomiting or any other symptoms. Her neck pain and jaw pain which whether angina equivalent that she complained of have not recurred. Objective Data Objective Data Vital Signs: Vital Signs Temp Pulse Resp BP Pulse Ox O2 Del Method 98.2 F 63 18 100/52 L 94 Room Air 03/28/24 11:00 03/28/24 11:00 03/28/24 11:00 03/28/24 11:00 03/28/24 11:03/28/24 11:00 Oxygen Delivery Method Room Air Weight: 195 lb Body Mass Index (BMI) 36.8 Intake & Output: Intake and Output for Last 24 Hours 03/26/24 03/27/24 03/28/24 23:59 23:59 23:59 Intake Total 390 / 390 Output Total 0 / 0 Balance - 390 / 390 Lab / Micro Data 03/28/24 05:07 03/28/24 05:07 Labs: Laboratory Results - last 24 hr 03/27/24 14:09: Troponin I High Sens 28 03/28/24 05:07: WBC 10.1, RBC 4.11 L, Hgb 12.4, Hct 37.4, MCV 91.0, MCH 30.2, MCHC 33.2, RDW Std Deviation 43.3, RDW Coeff of Abdullahi 13.1, Plt Count 232, MPV 11.3, Immature Gran % (Auto) 0.400, Neut % (Auto) 46.8 L, Lymph % (Auto) 36.6, [place] % (Auto) 10.0, Eos % (Auto) 5.8 H, Baso % (Auto) 0.4, Absolute Neuts (auto) 4.7, Absolute Lymphs (auto) 3.68, Nucleated RBC % 0, Sodium 138, Potassium 4.0, Chloride 111 H, Carbon Dioxide 21.0, Anion Gap 6, BUN 17, Creatinine 1.03 H, Estim Creat Clear Calc 51.40, Est GFR (MDRD) Af Amer 68, Est GFR (MDRD) Non-Af 56 L, BUN/Creatinine Ratio 16.5, Glucose 95, Calcium 8.9, Triglycerides 117, Cholesterol 112, LDL Cholesterol 43, VLDL Cholesterol 23, HDL Cholesterol 46, TSH 2.920 Radiography Diagnostic Testing: Radiology Impression Echocardiogram 03/27/24 17:32 Interpretation Summary The estimated ejection fraction is 65 %. No evidence for diastolic dysfunction. Trivial mitral valve insufficiency. Ordering Physician: Nery Ho Referring Physician: Meg Quan Performed By: Diann Yates, CAROLYN, RVT Physical Exam Const alert, oriented x3, no apparent distress and well nourished General Appearance: cooperative and well developed HEENT normocephalic, head/scalp atraumatic, moist oral mucous membranes, oropharynx normal and gingiva normal Eyes PERRL and EOMs intact bilaterally Neck no lymphadenopathy, supple and no JVD Lymph Lymphatic: no lymphadenopathy noted and no lymphedema noted Resp normal respiratory effort, normal air movement and clear to auscultation bilaterally Cardio regular rate, regular rhythm, S1 normal heart sound and S2 normal heart sound GI normal to inspection, nondistended, normoactive bowel sounds, soft to palpation, non-tender and non-distended Extremity normal capillary refill, no clubbing, cyanosis or edema and no calf tenderness General Extremity: no tenderness to palpation of joints or extremities Skin General Skin Exam: no breakdown Neuro CN's II-XII intact bilaterally, no focal motor deficits and no sensory deficits noted Motor Exam: strength 5/5 throughout and general weakness Psych thought process normal, cooperative and affect normal Appearance: appropriate Assessment & Plan Assessment/Plan (1) Abnormal stress test: PLAN: Plan #Abnormal stress test * she had been having neck pain radiating to her jaw which was reproduced during the stress test. * cardiology consulted * troponins did not trend upwards. On aspirin and statin * for stress test today * 2D echo showed EF of 65% and no evidence of diastolic dysfunction. * on brilinta also * CAD s/p CABG and stent * had a single vessel CABG in 1995. * #Hypothyroidism: on synthroid. #CKD IIIb * Cr is 1.03. This is her baseline. Will monitor. * #Hypertension: on lisinopril and metoprolol. #Hypothyroidism: on synthroid DVT prophylaxis: SCDs Charges/Coding Visit Charges Inpatient E&M: 56906 Subs Hosp L2
--- NOTE | 2024-03-28 14:06 | CRPHASE1_ITS ---
Patient Communication Patient Information Former Patient:: Phase I and Phase II PHII Cardiac Rehab Discussed with Patient:: Yes Guide to Cardiac Rehab Given to Patient:: Yes Cardiac Rehab Facility Choice List Given to Patient:: Yes Communication to Cardiac Rehab Choice Program [facility] CR PHII:: Communication Given to CR [employer] Finishing Supervisor:: Ashish Raman Refer Phase II Cardiac Rehab:: Yes Sessions:: 36 sessions - 3 days/wk, 12 weeks Cardiac Rehabilitation Info Program Information Cardiac Rehabilitation Program Information: Cardiac Rehab The cardiac rehab team at [facility] consists of highly skilled exercise physiologists, nurses, respiratory therapists and physicians working together with you. Our purpose is to help you have a full recovery and achieve the goals you set for yourself. Over the years many of our patients have returned to activities they assumed they would never do again! We can help restore your confidence and motivation to make lifestyle changes that can have a significant impact on your health and quality of life! We can help answer questions and concerns you may have about exercise, lifestyle, medications, diet, stress and anxiety which are common following a hospitaliz ation. WE monitor ECG and vital signs during exercise and discuss your progress with you and report to your physician(s). Cardiac Rehab is proven to help reduce readmissions, improve functional capacity and lower recurrence of problems with your heart. Our Cardiac Rehab program is Certified by the [place] [employer] Pulmonary [employer] (AACVPR) and Accredited by the [place] [employer] through our [facility]. You can contact us at . We invite you to call us with your questions or to get started in our program. If you have other questions or concerns be sure to ask your physician/provider during your follow-up visit. WE look forward to seeing you!
--- NOTE | 2024-03-28 14:07 | CRPH1.INSTRU ---
General Education Discussed with Patient CAD and cardiac anatomy and function:: Patient communicates acknowledgment and Family communicates acknowledgment Explanation of diagnoses and procedures:: Patient communicates acknowledgment and Family communicates acknowledgment Sign/Symptoms of [place]:: Patient communicates acknowledgment and Family communicates acknowledgment Antiplatelet therapy: Patient communicates acknowledgment and Family communicates acknowledgment Proper use of NTG-SL: Patient communicates acknowledgment and Family communicates acknowledgment Emergency procedures and activation of EMS: Patient communicates acknowledgment and Family communicates acknowledgment Compliance of all prescribed medications: Patient communicates acknowledgment and Family communicates acknowledgment Dyslipidemia Recommendations Recommendations Include:: Lipid profile not available Response Code Dyslipidemia Response Code:: Patient communicates acknowledgment and Family communicates acknowledgment Overweight/Obesity Risk Factors Patient Overweight/Obesity Risk Factors Are:: Obesity - > or = 30 Recommendations Recommendations Include:: Weight loss of 5-10% and Exercise 5-7 times/week Response Code Overweight/Obesity:: Patient communicates acknowledgment and Family communicates acknowledgment Hypertension Recommendations Recommendations Include:: Maintain BP <130/85 and Decrease/maintain normal body weight Response Code Hypertension:: Patient communicates acknowledgment and Family communicates acknowledgment Heart Disease Risk Factors Patient Heart Disease Risk Factors Are:: Previous cardiac event Recommendations Recommendations Include:: Educated family members of their risk and Educated family members of importance of prevention of heart disease Response Code Heart Disease Response Code:: Patient communicates acknowledgment and Family communicates acknowledgment Sedentary Risk Factors Patient Sedentary Risk Factors Are:: Lack of regular exercise Recommendations Recommendations Include:: Aerobic exercise 5-7 times/week for 20-30 minutes continuously, Benefits of regular exercise, Discussed home walking program and Monitored Outpatient Cardiac Rehab Response Code Sedentary Response Code:: Patient communicates acknowledgment and Family communicates acknowledgment
--- NOTE | 2024-03-28 14:24 | CASEMGMT ---
ALYSSIA CLARK Assessment Face to Face with patient for initial transition planning/care coordination assessment. ALYSSIA CLARK introduced self and role at [facility], pt voices understanding. Pt is A&Ox4 and is resting comfortably in bed and is calm. Pt at bedside. Care providers, pharmacy, and demographics verified. Admitting dx: CP, Abnormal stress test LACE Strata: 2 PCP: Meg Quan Specialists: Dr. Jaison Castellon (Cardio-Ayala) [facility]erred [facility]acy: [facility] Insurance: [employer] Health Prescription Benefit: Yes LNOK: Av (H) Living Arrangements: Pt lives with her in a ground level apartment with a flat entrance ADLs/IADLs: Ind Transportation: Self, DME: Cane, BP Machine HHC/SNF: Report HH Hx in 1995 after Cardiac Surgery Pt?s goal: Home Plan: Home with pt , anticipate no additional needs. Pt denies the need for HH, OP Tx, or CCN. Pt states that she feels safe returning home with her once she is medically ready. CM to follow for potential blood thinning Rx. Pt denies further concerns at this time. Report given to LAUNDRY ASSISTANT CM. Gudelia Moore RN, CM
--- NOTE | 2024-03-28 14:38 | CL.I_ITS ---
Patient Name: SUYAPA BURT Study Date: 03/28/2024 Performing: Cal Raman MD Ht: 61 inches 154.94 cm : 1955 Wt: 195.3 lbs 88.45 kg Age: 68 Gender: female BSA: 1.87 PROCEDURE(S) PERFORMED DC04-(51451)LHC/COR/CABG IC12-([id number]/[id number])LONNIE W/WO PTCA, SINGLE CORONARY ARTERY IC13-([id number]/[id number])LONNIE W/WO PTCA, EACH ADD'L ART, SAME MAJOR CLINICAL PROFILE AND CO-MORBIDITIES Indications: Worsening Angina, unstable angina Heart Failure: None CONCLUSIONS Coronary artery disease as described. Patent 03/08 bypass graft. Successful LONNIE to proximal RPDA and proximal RCA. RECOMMENDATIONS DESCRIPTION OF PROCEDURE The patient arrived to the procedure lab. The risks and benefits of the procedure as well as a full description of our services here and lack of surgical backup were fully explained to the patient and/or their significant other prior to the catheterization. The Timeout was completed, verifying the correct patient and procedure. The patient's procedural site was prepped and draped in the usual fashion. Local anesthetic was given subcutaneously to left radial region with Lidocaine 2%. Using a modified Seldinger technique, arterial access was obtained via the left radial artery, a 6Fr sheath was inserted.. Left internal mammary artery graft to the LAD selective angiography was performed in multiple views using a 5 Fr. JR4 catheter. Right Coronary Artery selective angiography was then performed in multiple views using a 5 Fr. JR 4 catheterThe images were reviewed and options discussed. A decision was then made to proceed with an Intervention, IVUS or other adjunct procedure. JR4 Guide catheter was inserted and engaged into the RCA. BMW Pierron Guide wire was advanced to the RCA. Emerge 2.0 x 12 Balloon catheter was inserted. Balloon catheter was advanced across lesion in the right coronary artery, proximal. PTCA balloon inflated at 8 atms for 18 secs. PTCA balloon inflated at 14 atms for 24 secs. Balloon catheter was repositioned to additional lesion in the posterior descending, proximal. PTCA balloon inflated at 12 atms for 22 secs. Emerge 3.50 x 15 Balloon catheter was inserted. Balloon catheter was advanced across lesion in the right coronary, proximal. PTCA balloon inflated at 10 atms for 26 secs. Rogelio Independence 2.25 x 12 Drug Eluting stent was inserted. Drug Eluting stent was advanced across the lesion in the posterior descending, proximal. Rogelio Independence 3.5 x 18 Drug Eluting stent was inserted. Drug Eluting stent was advanced across the lesion in the right coronary, proximal. Angiogram performed post stent deployment. The arterial sheath was pulled and a TR Band was applied for hemostasis CORONARY ANGIOGRAPHY DOMINANCE: Right Dominant LEFT MAIN: Mild luminal irregularities LEFT ANTERIOR DESCENDING ARTERY: MID LAD: 100 % Stenosis DIAGONAL 1: Proximal - 70 % Stenosis, about 2mm in diameter CIRCUMFLEX ARTERY: Mild luminal irregularities RIGHT CORONARY ARTERY: PROX RCA: 99 % Stenosis RT PDA: Proximal - 80 % Stenosis. Patent stent in the proximal RPDA proximal to the site of the 80% stenosis GRAFTS: MAURICIO graft to the LAD is patent INTERVENTION INFORMATION LESION SITE: RT PDA (Proximal) Lesion Complexity: High/C, chronic total occlusion: No, lesion at bifurcation: No, thrombus present: No, lesion length: 12 mm, culprit lesion: Yes, Previously treated lesion: No Pre Stenosis: 80 % Pre intervention JIA flow: 3 PROCEDURE: Drug Eluting Stent with pre dilatation. 2.25 x 12 mm LONNIE was deployed Post Stenosis: 0 % Post intervention JIA flow: 3 Lesion Devices: [place] .014 190cm BMW Pierron Straight Cordis 6 Fr JR4 100cm Guide Catheter Jaylen Sci EMERGE MR 2.00x12 BALLOON Medtronic 2.25 x 12 ROGELIO FRONTIER LONNEI LESION SITE: RCA (Proximal) Lesion Complexity: High/C, chronic total occlusion: No, lesion at bifurcation: No, thrombus present: No, lesion length: 16 mm, culprit lesion: Yes, Previously treated lesion: No Pre Stenosis: 99 % Pre intervention JIA flow: 3 PROCEDURE: Drug Eluting Stent with pre dilatation. The lesion was predilated with a 2.0 x 12 mm balloon and then a 3.5 mm balloon. A 3.5 x 18 millimeter drug-eluting stent was then deployed at 14 iman. Post Stenosis: 0 % Post intervention JIA flow: 3 Lesion Devices: [place] .014 190cm BMW Pierron Straight Cordis 6 Fr JR4 100cm Guide Catheter Jaylen Sci EMERGE MR 2.00x12 BALLOON Jaylen Sci EMERGE MR 3.50x15 BALLOON Medtronic 3.5 x 18 ROGELIO FRONTIER LONNIE COMPLICATIONS No Complications PROCEDURE MEDICATIONS Versed 1 mg IV Fentanyl 50 mcg IV Versed 1 mg IV Oxygen: 2 L/min via nasal cannula Brilinta 180 mg PO @ 03/28/2024 12:33:36 Heparin given IA 03/28/2024 12:22:22 Heparin 4000 unit(s) IV 03/28/2024 12:39:21 Verapamil 2.5mg, Ntg 100mcgs, 3000 units of Heparin given IA 03/28/2024 12:22:22 SUMMARY OF HEMODYNAMIC DATA Time AIR REST ECG 12:05:39 AO 87/47 (62) SA 12:26:16 AO 86/52 (67) 12:33:57 AO 95/51 (69) 12:41:35 Signed By Cal Raman MD On 03/28/2024 14:37:13 Cal Raman MD
--- NOTE | 2024-03-28 15:27 | EKG12_ITS ---
Test Reason : POST PCI Blood Pressure : */* mmHG Vent. Rate : 70 BPM Atrial Rate : 70 BPM P-R Int : 206 ms QRS Dur : 92 ms QT Int : 414 ms P-R-T Axes : 38 -22 72 degrees QTcB Int : 447 ms ham Normal sinus rhythm Moderate voltage criteria for LVH, may be normal variant ( R in aVL , Rafi product ) Borderline ECG No previous ECGs available Confirmed by JACINDA HWANG, RAÚL ([id number]), communications editor NICKOLAS MCGUIRE ([id number]) on 04/05/2024 7:54:44 AM Referred By: ARNOLD Confirmed By: RAÚL MONACO MD
[2024-03-28] MEDS: Amitriptyline 25 MG Tablet 50 MG PO (22:19)
[2024-03-28] MEDS: TICAGRELOR 90 MG TABLET PO (22:20)
[2024-03-29] MEDS: traMADol 50 MG Tablet PO (02:08)
[2024-03-29 03:24] VITALS: BP 110/54; PULSE 69; RESP 18; TEMP 36.4; O2SAT 95
[2024-03-29] MEDS: Levothyroxine 137 MCG Tablet PO (05:17)
[2024-03-29] MEDS: Gabapentin 600 MG Tablet 1200 MG PO ×2 (05:17→13:35)
[2024-03-29 06:16] LABS: Absolute Lymphocyte Count 2.53 X10^3/uL (0.83-4.51); Absolute Neutrophil Count 6.5 X10^3/uL (2.0-7.7); Basophil# 0.04 X10^3/uL; Basophil% 0.4 % (0-1); Eosinophil# 0.61 X10^3/uL; Eosinophils% 5.7 % (0-5); Hematocrit 38.6 % (37-47); Hemoglobin 12.6 g/dL (12.0-15.0); Lymphocyte # 2.53 X10^3/ul (0.83-4.51); Lymphocyte % 23.5 % (19-41); Mean Corp Hgb Conc 32.6 g/dL (32-36); Mean Corpuscular Hgb 29.8 pg (27.0-32.0); Mean Corpuscular Volume 91.3 fL (81-99); Mean Platelet Vol. 10.8 fl (6.2-12.0); Monocyte# 1.09 X10^3/uL; Monocyte% 10.1 % (0-10); NRBC Flagged by Analyzer 0 % (0-5); Neutrophil # 6.45 X10^3/uL (2.7-7.7); Neutrophil % 59.9 % (47-70); Platelet Count 231 K/mm3 (150-450); RBC Distribution Width CV 13.2 % (11.6-14.6); RBC Distribution Width SD 43.8 fl (35.1-43.9); Red Blood Count 4.23 M/mm3 (4.2-5.4); White Blood Count 10.8 K/mm3 (4.4-11.0)
[2024-03-29 06:55] LABS: AST(SGOT) 22 U/L (15-37); Alanine Aminotransfer ALT/SGPT 20 U/L (13-56); Albumin, Serum 3.5 g/dL (3.2-5.0); Alkaline Phosphatase 63 U/L (45-117); Anion Gap 6 (5-15); BUN 15 mg/dL (7-18); BUN/Creat Ratio 13.8 RATIO (10-20); Calcium,Total 9.2 mg/dL (8.5-10.1); Chloride 109 mmol/L (98-107); Creatinine, Serum 1.09 mg/dL (0.55-1.02); EST Glomerular Filtration Rate 53 mL/min (>60); Est Glom Filt Rate - Afr Amer 64 mL/min (>60); Estimated Creatinine Clearance 48.57 ml/min; Globulin 3.4 g/dL (2.2-4.2); Glucose 107 mg/dL (74-106); Potassium 4.4 mmol/L (3.5-5.1); Protein, Total 6.9 g/dL (6.4-8.2); Sodium Level 137 mmol/L (136-145)
[2024-03-29 07:22] VITALS: O2SAT 97
[2024-03-29 09:39] VITALS: BP 111/47; PULSE 80; RESP 17; TEMP 36.7; O2SAT 94
[2024-03-29] MEDS: Aspirin E.C. 81 MG Tablet PO (09:50)
[2024-03-29] MEDS: Isosorbide Mononitrate 30 MG Tablet PO (09:50)
[2024-03-29] MEDS: TICAGRELOR 90 MG TABLET PO (09:50)
[2024-03-29] MEDS: buPROPion 100 MG Tablet PO (09:50)
[2024-03-29] MEDS: Atorvastatin Calcium 80 MG Tablet PO (09:50)
--- NOTE | 2024-03-29 10:00 | EKG12_ITS ---
Test Reason : AM EKG Blood Pressure : */* mmHG Vent. Rate : 58 BPM Atrial Rate : 159 BPM P-R Int : * ms QRS Dur : 100 ms QT Int : 430 ms P-R-T Axes : 34 -29 62 degrees QTcB Int : 422 ms Undetermined rhythm Moderate voltage criteria for LVH, may be normal variant ( R in aVL , Mobile product ) Borderline ECG When compared with ECG of 28-Mar-2024 05:45, MANUAL COMPARISON REQUIRED DATA IS UNCONFIRMED Confirmed by JACINDA HWANG, RAÚL ([id number]), editor city NICKOLAS MCGUIRE ([id number]) on 04/03/2024 2:18:38 PM Referred By: Confirmed By: RAÚL MONACO MD
[2024-03-29 10:17] VITALS: BP 111/47; PULSE 80; RESP 17; TEMP 36.7; O2SAT 98
[2024-03-29 10:41] VITALS: BP 104/54; PULSE 69
[2024-03-29] MEDS: Metoprolol Tartrate 25 MG Tablet 37.5 MG PO (10:41)
--- NOTE | 2024-03-29 12:01 | PCM.DC ---
Discharge Instructions Diet Discharge Diet: Low fat / Low cholesterol DC O2, CPAP, BIPAP needs Home O2 Discharge instructions: No Dressing / Incision Discharge Activity: Return to Normal Activity Weight Bearing Status: Weight bearing as tolerated Dressing / Incision Call your doctor if you observe: Fever of 101 or Higher, Shortness of breath, Dizziness, Swelling in the ankles and Chest pain Follow Up Care Test Results: Test results from this visit will be discussed in further detail at your follow-up appointment, if applicable. Discharge Plan Admission Admit Date/Time: 03/27/24 16:52 Primary Reason for Your Visit: CAD Attending Provider: Eryn Molina Primary Care Provider: Meg Quan Consulting Providers: Ashish Raman; Nery Ho Instructions Patient Instructions: Heart Attack Meds Discharge Orders/Prescriptions Prescriptions: New Brilinta 90 mg Tablet 90 mg PO BID Qty: 60 3RF atorvastatin 80 mg Tablet 80 mg PO DAILY Qty: 30 3RF Continued tramadol 50 MG tablet 50 mg PO BID Patient Comments: pain levothyroxine 137 MCG tablet 137 mcg PO DAILY Patient Comments: thyroid isosorbide mononitrate 30 MG tablet 30 mg PO DAILY Patient Comments: bp bupropion HCl 100 MG tablet 100 mg PO DAILY Patient Comments: depression amitriptyline 25 MG tablet 50 mg PO QHS nitroglycerin 0.4 MG tablet 0.4 mg sublingual Q5M PRN (Reason: Chest Pain) Patient Comments: chest pain lisinopril 5 MG tablet 10 mg PO DAILY Patient Comments: bp gabapentin 600 MG tablet 1,200 mg PO TID Patient Comments: nerve pain, 1-2 TABLETS IN THE AFTERNOON aspirin 81 MG tablet 81 mg PO DAILY@0800 Patient Comments: heart health Fish Oil 300 MG capsule 2,400 mg PO DAILY Patient Comments: supplement multivitamin with folic acid [Thera] 1 TABLET tablet 1 tab PO DAILY Patient Comments: vitamin metoprolol tartrate 100 MG tablet 37.5 mg PO BID Patient Comments: heartrate docusate sodium [DOK] 100 MG capsule 100 mg PO DAILY fluticasone propionate [Flonase Allergy Relief] 50 mcg/actuation [place],Suspension 2 spray INTRANASAL DAILY Rx Instructions: administer into each nostril tizanidine 2 mg Tablet 2 mg PO BID PRN (Reason: muscle spasms) topiramate 50 mg Tablet 50 mg PO QHS PreserVision AREDS 2,148 mcg-113 mg-45 mg-17.4mg Tablet 2 tab PO BID Rx Instructions: administer with AM and PM meals Discontinued rosuvastatin 40 mg Tablet 40 mg PO DAILY Referrals / Follow Up: Remi Knutson MD [Med Staff - Active Staff] - Within 2 Weeks Meg Quan MD [Primary Care Provider] - Within 1 Week Disposition Disposition (needs filled in before D/C Order can be placed): Home, Self Care
--- NOTE | 2024-03-29 12:08 | PCM.DC.SUM ---
Providers Date of Admission: 03/27/24 Date of Discharge: 03/29/24 Primary Care Physician: Dr. Meg Quan MD Consultations 03/27/24 17:32 Consult: Cardiology Routine Consulting Provider: Ashish Raman Reason for Consult: Sent in d/t pain during stress test EMERGENT Consult: No MD Notified: Yes Date Notified: 03/27/24 Time Notified: 18:47 Method of Notification: Text Reason For Visit: CHEST PAIN, ABNORMAL STRESS TEST Diagnosis Discharge Diagnosis (1) Abnormal stress test: Status: Acute Code(s): R94.39 - Abnormal result of other cardiovascular function study Plan #Abnormal stress test she had been having neck pain radiating to her jaw which was reproduced during the stress test. cardiology consulted troponins did not trend upwards. On aspirin and statin for stress test today 2D echo showed EF of 65% and no evidence of diastolic dysfunction. on brilinta also CAD s/p CABG and stent had a single vessel CABG in 1995. #Hypothyroidism: on synthroid. #CKD IIIb Cr is 1.03. This is her baseline. Will monitor. #Hypertension: on lisinopril and metoprolol. #Hypothyroidism: on synthroid DVT prophylaxis: SCDs Medications at Discharge Home Medications amitriptyline 25 mg tablet 50 mg PO QHS 07/24/15 bupropion HCl 100 mg tablet 100 mg PO DAILY 07/24/15 isosorbide mononitrate 30 mg tablet,extended release 24 hr 30 mg PO DAILY 07/24/15 levothyroxine 137 mcg tablet 137 mcg PO DAILY 07/24/15 lisinopril 5 mg tablet 10 mg PO DAILY 07/24/15 nitroglycerin 0.4 mg sublingual tablet 0.4 mg sublingual Q5M PRN Chest Pain 07/24/15 tramadol 50 mg tablet 50 mg PO BID pain 07/24/15 aspirin 81 mg tablet,delayed release 81 mg PO DAILY@0800 07/28/15 gabapentin 600 mg tablet 1,200 mg PO TID 07/28/15 multivitamin with folic acid 400 mcg tablet (Thera) 1 tab PO DAILY 07/28/15 omega-3 fatty acids 300 mg capsule (Fish Oil) 2,400 mg PO DAILY 07/28/15 metoprolol tartrate 100 mg tablet 37.5 mg PO BID 07/29/15 docusate sodium 100 mg capsule (DOK) 100 mg PO DAILY 03/23/16 fluticasone propionate 50 mcg/actuation nasal spray,suspension (Flonase Allergy Relief) 2 spray intranasal DAILY 07/27/22 tizanidine 2 mg tablet 2 mg PO BID PRN muscle spasms 07/27/22 topiramate 50 mg tablet 50 mg PO QHS 07/27/22 vitamins A,C,K-trct-nufawr 2,148 mcg-113 mg-45 mg-17.4 mg tablet (PreserVision AREDS) 2 tab PO BID 07/27/22 atorvastatin 80 mg tablet 80 mg PO DAILY #30 tabs 03/29/24 ticagrelor 90 mg tablet (Brilinta) 90 mg PO BID #60 tabs 03/29/24 Hospital Course Operations None Procedures Cardiac catheterization Summary of Care Provided Minutes Spent on Discharge: 47 Hospital Course: Patient is a 68-year-old female with past medical history as outlined which includes CAD s/p CABG and PCI who was admitted through the ED on 03/27/2024 with on account of abnormal stress test. She has been having exertional chest pain and had seen her PCP and was recommended to have an outpatient stress test. During the stress that she subsequently developed substernal chest pain which radiated to her jaw and lower questionable ST depressions per EKG. She was therefore sent to the ED and admitted on account of abnormal stress test. Troponins were not elevated with initial troponin being 15 and subsequently going slightly up to 28. She was admitted on account of the abnormal stress test. Cardiology was consulted. She had 2D echo which showed EF of 65% and no evidence of diastolic dysfunction and no regional wall motion abnormalities. She had cardiac cath and successful LONNIE to proximal RPDA and proximal RCA. She was placed on aspirin and Brilinta as well as high intensity statin. She remained stable and was discharged on 03/29/2024. She is follow-up with her primary care doctor and cardiology within 1 to 2 weeks. Patient seen and examined prior to discharge. She had no active complaints and felt well. Review of systems otherwise negative. Labs and vitals reviewed. Medication reviewed and reconciled. Physical Exam Const alert, oriented x3, no apparent distress and well nourished General Appearance: cooperative, comfortable, well kempt and well developed Orientation / Consciousness: awake Exam Limitations: no limitations HEENT normocephalic, head/scalp atraumatic, hearing grossly normal bilaterally, moist oral mucous membranes, oropharynx normal and gingiva normal Mouth: oral and palatal mucosa normal Eyes PERRL, EOMs intact bilaterally and conjunctivae normal Neck no lymphadenopathy, supple and no JVD Lymph Lymphatic: no lymphadenopathy noted and no lymphedema noted Resp normal respiratory effort, normal air movement and clear to auscultation bilaterally Cardio regular rate, regular rhythm, S1 normal heart sound and S2 normal heart sound GI normal to inspection, nondistended, normoactive bowel sounds, soft to palpation, non-tender and non-distended Extremity normal to inspection, full ROM, normal capillary refill, no clubbing, cyanosis or edema and no calf tenderness General Extremity: no tenderness to palpation of joints or extremities Skin no rashes or lesions noted General Skin Exam: no breakdown Neuro oriented x3, CN's II-XII intact bilaterally, moves all extremities, no focal motor deficits and no sensory deficits noted Sensorium / Orientation: awake and alert Motor Exam: strength 5/5 throughout and general weakness Psych thought process normal, cooperative and affect normal Appearance: appropriate Weight / BMI Weight Weight: 195 lb Body Mass Index (BMI) 36.8 ABG / Lab / Microbiology Data 03/29/24 05:19 03/29/24 05:19 Laboratory: Laboratory Results - last 24 hr 03/29/24 05:19: WBC 10.8, RBC 4.23, Hgb 12.6, Hct 38.6, MCV 91.3, MCH 29.8, MCHC 32.6, RDW Std Deviation 43.8, RDW Coeff of Abdullahi 13.2, Plt Count 231, MPV 10.8, Immature Gran % (Auto) 0.400, Neut % (Auto) 59.9, Lymph % (Auto) 23.5, [place] % (Auto) 10.1 H, Eos % (Auto) 5.7 H, Baso % (Auto) 0.4, Absolute Neuts (auto) 6.5, Absolute Lymphs (auto) 2.53, Nucleated RBC % 0, Sodium 137, Potassium 4.4, Chloride 109 H, Carbon Dioxide 22.0, Anion Gap 6, BUN 15, Creatinine 1.09 H, Estim Creat Clear Calc 48.57, Est GFR (MDRD) Af Amer 64, Est GFR (MDRD) Non-Af 53 L, BUN/Creatinine Ratio 13.8, Glucose 107 H, Calcium 9.2, Total Bilirubin 0.70, AST 22, ALT 20, Alkaline Phosphatase 63, Total Protein 6.9, Albumin 3.5, Globulin 3.4, Albumin/Globulin Ratio 1.0 D/C Instructions Discharge Diet: Low fat / Low cholesterol Discharge Activity: Return to Normal Activity Weight Bearing Status: Weight bearing as tolerated Call your doctor if you observe: Fever of 101 or Higher, Shortness of breath, Dizziness, Swelling in the ankles and Chest pain DC O2, CPAP, BIPAP Needs Home O2 Discharge instructions: No Meaningful Use Info Meaningful Use Meaningful Use Diagnoses (Choose all that apply): None applicable Ischemic Stroke Statin Dosing Therapy Reference: STATIN DOSE THERAPY REFERENCE: * Patients > 75 years receive moderate or high dose statin therapy. * Patients 75 years or YOUNGER should receive HIGH intensity statin dose unless contraindicated. You will be required to document reason for non-treatment if statin daily dose does not meet guidelines. HIGH DOSE STATIN THERAPY DAILY Atorvastatin > than or = to 40 mg Rosuvastatin > than or = to 20 mg Amlodipine + Atorvastatin > than or = to 2.5/40 mg Ezetimibe + Simvastatin 10/80 mg Simvastatin 80mg Discharge Plan Admission Admit Date/Time: 03/27/24 16:52 Primary Reason for Your Visit: CAD Attending Provider: Eryn Molina Primary Care Provider: Meg Quan Consulting Providers: Ashish Raman; Nery Ho Instructions Patient Instructions: Heart Attack Meds Discharge Orders/Prescriptions Prescriptions: New Brilinta 90 mg Tablet 90 mg PO BID Qty: 60 3RF atorvastatin 80 mg Tablet 80 mg PO DAILY Qty: 30 3RF Continued tramadol 50 MG tablet 50 mg PO BID Patient Comments: pain levothyroxine 137 MCG tablet 137 mcg PO DAILY Patient Comments: thyroid isosorbide mononitrate 30 MG tablet 30 mg PO DAILY Patient Comments: bp bupropion HCl 100 MG tablet 100 mg PO DAILY Patient Comments: depression amitriptyline 25 MG tablet 50 mg PO QHS nitroglycerin 0.4 MG tablet 0.4 mg sublingual Q5M PRN (Reason: Chest Pain) Patient Comments: chest pain lisinopril 5 MG tablet 10 mg PO DAILY Patient Comments: bp gabapentin 600 MG tablet 1,200 mg PO TID Patient Comments: nerve pain, 1-2 TABLETS IN THE AFTERNOON aspirin 81 MG tablet 81 mg PO DAILY@0800 Patient Comments: heart health Fish Oil 300 MG capsule 2,400 mg PO DAILY Patient Comments: supplement multivitamin with folic acid [Thera] 1 TABLET tablet 1 tab PO DAILY Patient Comments: vitamin metoprolol tartrate 100 MG tablet 37.5 mg PO BID Patient Comments: heartrate docusate sodium [DOK] 100 MG capsule 100 mg PO DAILY fluticasone propionate [Flonase Allergy Relief] 50 mcg/actuation [place],Suspension 2 spray INTRANASAL DAILY Rx Instructions: administer into each nostril tizanidine 2 mg Tablet 2 mg PO BID PRN (Reason: muscle spasms) topiramate 50 mg Tablet 50 mg PO QHS PreserVision AREDS 2,148 mcg-113 mg-45 mg-17.4mg Tablet 2 tab PO BID Rx Instructions: administer with AM and PM meals Discontinued rosuvastatin 40 mg Tablet 40 mg PO DAILY Referrals / Follow Up: Remi Knutson MD [Med Staff - Active Staff] - Within 2 Weeks Meg Quan MD [Primary Care Provider] - Within 1 Week Disposition Disposition (needs filled in before D/C Order can be placed): Home, Self Care Charges/Coding Visit Charges Inpatient E&M: 84358 Disch Hosp >30min
--- NOTE | 2024-03-29 12:30 | CASEMGMT ---
Patient has order for discharge. Patient is discharging on Brilinta. RN CM called Etienne, copay is $433.65. RN CM in to discuss needs at discharge, at bedside. RN CM updated patient regarding copay for Brilinta, 30 day free trial card provided. RN CM encourage patient to follow-up with curb supervisor if medication is too expensive for other options, patient voiced understanding. Patient and deny needs or help at discharge. Patient had no further questions or concerns.
[2024-03-29 13:43] VITALS: BP 112/50; PULSE 62; RESP 15; TEMP 36.5; O2SAT 99
--- NOTE | 2024-03-29 14:17 | PCM.PN.CARD ---
Subjective Subjective Doing well today. Denies any anginal symptoms. Objective Data Vital Signs: Vital Signs Temp Pulse Resp BP Pulse Ox O2 Del Method 97.7 F L 62 15 112/50 L 99 Room Air 03/29/24 13:43 03/29/24 13:43 03/29/24 13:43 03/29/24 13:43 03/29/24 13:43 03/29/24 13:43 Oxygen Delivery Method Room Air Weight: 195 lb Body Mass Index (BMI) 36.8 Intake & Output: Intake and Output for Last 24 Hours 03/27/24 03/28/24 03/29/24 23:59 23:59 23:59 Intake Total 750 / 750 350 / 350 Output Total 0 / 0 Balance - 750 / 750 350 / 350 Lab / Micro Data 03/29/24 05:19 03/29/24 05:19 Labs: Laboratory Results - last 24 hr 03/29/24 05:19: WBC 10.8, RBC 4.23, Hgb 12.6, Hct 38.6, MCV 91.3, MCH 29.8, MCHC 32.6, RDW Std Deviation 43.8, RDW Coeff of Abdullahi 13.2, Plt Count 231, MPV 10.8, Immature Gran % (Auto) 0.400, Neut % (Auto) 59.9, Lymph % (Auto) 23.5, Howell % (Auto) 10.1 H, Eos % (Auto) 5.7 H, Baso % (Auto) 0.4, Absolute Neuts (auto) 6.5, Absolute Lymphs (auto) 2.53, Nucleated RBC % 0, Sodium 137, Potassium 4.4, Chloride 109 H, Carbon Dioxide 22.0, Anion Gap 6, BUN 15, Creatinine 1.09 H, Estim Creat Clear Calc 48.57, Est GFR (MDRD) Af Amer 64, Est GFR (MDRD) Non-Af 53 L, BUN/Creatinine Ratio 13.8, Glucose 107 H, Calcium 9.2, Total Bilirubin 0.70, AST 22, ALT 20, Alkaline Phosphatase 63, Total Protein 6.9, Albumin 3.5, Globulin 3.4, Albumin/Globulin Ratio 1.0 Cardiology Labs/Tests 03/29/24 05:19: WBC 10.8, RBC 4.23, Hgb 12.6, Hct 38.6, MCV 91.3, MCH 29.8, MCHC 32.6, Plt Count 231, MPV 10.8, Immature Gran % (Auto) 0.400, Neut % (Auto) 59.9, Lymph % (Auto) 23.5, Howell % (Auto) 10.1 H, Eos % (Auto) 5.7 H, Baso % (Auto) 0.4, Absolute Neuts (auto) 6.5, Nucleated RBC % 0, Sodium 137, Potassium 4.4, Chloride 109 H, Carbon Dioxide 22.0, Anion Gap 6, BUN 15, Creatinine 1.09 H, Est GFR (MDRD) Af Amer 64, Est GFR (MDRD) Non-Af 53 L, BUN/Creatinine Ratio 13.8, Glucose 107 H, Calcium 9.2, Total Bilirubin 0.70 Rhythm: EKG: ECHO: Stress Test: Cardiac Cath: PCI: CT Surgery: Holter monitor: EPS: PPM: CXR: Chest CT Scan: Physical Exam Const alert and oriented x3 HEENT normocephalic Eyes no scleral icterus Resp normal respiratory effort Assessment & Plan Assessment/Plan (1) Abnormal stress test: PLAN: Patient is status post PCI to the RCA and RPDA. She does have residual stenosis in the diagonal branch that is best treated medically at this time. Patient should be on aspirin 81 mg p.o. daily and Brilinta 90 mg p.o. twice daily for a minimum of 1 year. She can follow-up with her primary rubber insulator as an outpatient. Okay to discharge her home from a cardiac standpoint. (2) Chest pain: QUALIFIERS: Chest pain type: chest pain due to myocardial ischemia Ischemic chest pain type: unstable angina pectoris Qualified Code(s): I20.0 - Unstable angina (3) CAD (coronary artery disease): QUALIFIERS: Coronary Disease-Associated Artery/Lesion type: [place] artery [place] vs. transplanted heart: [place] heart Associated angina: with unstable angina Qualified Code(s): I25.110 - Atherosclerotic heart disease of [place] coronary artery with unstable angina pectoris Charges/Coding Visit Charges Inpatient E&M: 28042 Init Hosp L1
--- NOTE | 2024-03-29 15:33 | NURSING ---
Reviewed and agreed on charting with Saad Dumas RN
== END 2024-03-29 15:13 | disposition home or self-care (01) | DRG 322 ==
LOC: ED 12:59 → PCU 16:47
PROVIDERS: Specialist; Admitting Provider Internal Medicine; Emergency Provider Emergency Medicine; PCP Internal Medicine; Visit Provider Student in an Organized Health Care Education/Training Program
DX: I25.110 Atherosclerotic heart disease of native coronary artery with unstable angina pectoris (principal); E03.9 Hypothyroidism, unspecified; J44.9 Chronic obstructive pulmonary disease, unspecified; N18.32 Chronic kidney disease, stage 3b; F32.A Depression, unspecified; I12.9 Hypertensive chronic kidney disease with stage 1 through stage 4 chronic kidney disease, or unspecified chronic kidney disease; K21.9 Gastro-esophageal reflux disease without esophagitis; F41.9 Anxiety disorder, unspecified; I25.2 Old myocardial infarction; Z95.1 Presence of aortocoronary bypass graft; Z79.82 Long term (current) use of aspirin; Z88.2 Allergy status to sulfonamides; Z87.19 Personal history of other diseases of the digestive system; Z90.49 Acquired absence of other specified parts of digestive tract; Z79.890 Hormone replacement therapy; Z79.899 Other long term (current) drug therapy
CPT/HCPCS: 36415; 71045; 80048; 80053; 80061; 84443; 84484; 85025; 92928; 92929; 93005; 93306; 93454; 99152; 99153; 99285; C1894; Q9957; Q9967; A4216; C1725; C1769; C1874; C1887; C8929; C9600; C9601